=== PATIENT | male | born 1940 | race Caucasian/White ===

== ENCOUNTER 2017-01-21 19:52 | Outpatient (CLI) | payer MEDICARE ==
[~2017-01-21] VITALS: Ht 271.8 cm; Wt 90.9 kg
[~2017-01-21 19:52] MED LIST: ACETAMINOPHEN500 M1 PO; ACIDOPHILUS LAC1 CAP PO; ATIVAN2 MG/ML IV; BENADRYL50 MG PO; BENICAR20 MG PO; BENICAR40 MG PO; BYSTOLIC10 MG PO; CALMOSEPTINE OI71 GM TOPICAL; COLACE100 MG PO; CORDARONE200 MG; COUMADIN4 MG PO; COUMADIN5 MG PO; COUMADIN6 MG PO; DEPAKOTE250 MG PO; FLAGYL500 MG PO; GEODON20 MG PO; GEODON40 MG PO; K-DUR20 MEQ PO; KLONOPIN0.5 MG PO; KLOR-CON M2020 MEQ; LASIX40 MG; LASIX40 MG PO; LOSARTAN POTASS25 MG PO; LOVENOX150 MG/ML SC; MACROBID100 MG PO; MELATONIN 3 MG1 TAB PO; MULTIPLE VITAMI1 TA1 PO; NORVASC2.5 MG PO; NORVASC5 MG PO; PROTONIX40 MG PO; PYRIDOXINE HCL100 MG PO; REMERON15 MG PO; ROCEPHIN 1 GM/D51 G1 IM; SALINE FLUSH10 ML IV; VOLTAREN100 GM TOPICAL; ZOCOR20 MG PO
[2017-01-21 20:29] LABS: EOSINOPHILS 4.2 % (0-7); HEMATOCRIT 24.4 % (42.0-54.0); HEMOGLOBIN 7.8 g/dL (13.5-17.5); IMMATURE GRANULOCYTES 0.5 % (0-5); LYMPHOCYTES 38.5 % (15-50); MCH 33.8 pg (26.0-34.0); MCV 105.6 fL (80.0-100.0); MONOCYTES 9.4 % (2-11); NEUTROPHILS 46.4 % (40-80); PLATELET COUNT 262 10x3/uL (130-400); RBC 2.31 10x6/uL (4.20-6.10); RDW 16.2 % (11.5-14.5); WBC 4.1 10x3/uL (4.8-10.8)
[2017-01-21 20:47] LABS: ALBUMIN 2.3 g/dL (3.4-5.0); ALKALINE PHOSPHATASE 68 U/L (46-116); ALT (SGPT) 13 U/L (10-68); CALC OSMOLALITY 298 mosm/kg (275-300); CALCIUM 7.6 mg/dL (8.5-10.1); CARBON DIOXIDE 30.4 mmol/L (21.0-32.0); CHLORIDE - SERUM 112 mmol/L (98-107); GLUCOSE 119 mg/dL (74-106); PROTEIN - SERUM 5.9 g/dL (6.4-8.2); SODIUM 148 mmol/L (136-145); UREA NITROGEN 23 mg/dL (7-18); eGFR NON AFRICAN AMERICAN 77 mL/min (90-120)
[2017-01-21] MEDS ORDERED: ELIQUIS5 MG (22:57)
[2017-01-21] MEDS ORDERED: K-DUR20 MEQ (22:58)
--- NOTE | 2017-01-21 23:00 | NUR ---
PT RECEIVED FROM ER. REPORT RECEIVED FROM MORGAN TRISTAN. PT NOTED TO BE FROM [facility], [facility]. PT IS ALERT AND ORIENTED TO PERSON ONLY. PT NOTED TO HAVE 20G IV TO LEFT AC CURRENTLY SALINE LOCKED. DENIES PAIN OR NEEDS AT THIS TIME. PLEASANT MOOD NOTED.
[2017-01-21] MEDS ORDERED: NUEDEXTA 20-101 EACH (23:02)
--- NOTE | 2017-01-21 23:45 | NUR ---
THIS COMPUTER TESTER CALLED PT POA (JULIANA PALACIO) ALONG WITH RN TO OBTAIN CONSENT FOR BLOOD TRANSFUSION.
[2017-01-22 01:47] VITALS: BP 144/79; Ht 271.8 cm; Wt 90.9 kg
--- NOTE | 2017-01-22 05:15 | NUR ---
UPON ENTERING PT'S ROOM, PT OBSERVED WITH IV CATHETER IN HAND TOUCHING THE TIP WITH BLOOD ON SHIRT, BEDDING, AND SMALL AMOUNT ON FLOOR. BLOOD BAG NOTED TO BE EMPTY. PT VERY AGITATED AND YELLING AT STAFF. NOT COOPERATIVE WITH CARE, YELLING AT STAFF WHILE STAFF ASSISTED IN CLEANING PT UP. NO ACTIVE BLEEDING NOTED TO LEFT AC. BLOOD BAG NOTED TO BE 4/5 COMPLETED 15 MINUTES PRIOR TO FINDING PT WITH IV CATHETER REMOVED. IV POLE REMOVED FROM PT'S ROOM DUE TO PT CONSISTENTLY REACHING OVER AND PULLING ON IT. ATTEMPTED TO REDIRECT PT, NO SUCCESS.
--- NOTE | 2017-01-22 07:00 | NUR ---
PATIENT IN BED WITH EYES CLOSED RESTING QUIETLY. NO COMPLAINTS OR SIGNS OF DISTRESS. CALL LIGHT WITHIN REACH.
--- NOTE | 2017-01-22 07:15 | NUR ---
REPORT RECEIVED FROM COUNTY HEALTH OFFICER NURSE. CALL LIGHT IN REACH.
[2017-01-22 07:54] VITALS: BP 161/78
--- NOTE | 2017-01-22 08:39 | NUR ---
ASSESSMENT COMPLETED. AM MEDS ADMINISTERED. BED ALARM TURNED ON. CALL LIGHT IN REACH. WILL CONTINUE WITH PLAN OF CARE.
[2017-01-22] MEDS ORDERED: ZOCOR20 MG PO (09:58)
--- NOTE | 2017-01-22 10:58 | NUR ---
DENIES NEEDS AT THIS TIME. CALL LIGHT IN REACH. BROTHER AT BEDSIDE.
--- NOTE | 2017-01-22 11:17 | NUR ---
01/22/2017 11:00 DCP: Discharge Planning Patient Name: BRIAN PALACIO Admission Status: ER Accout number: [id number] Admission Date: 01-21-2017 : 1940 Admission Diagnosis: Attending: DONOVAN Current LOS: 1 Anticipated DC Date: 01-22-2017 Planned Disposition: Nursing Facility [facility] Primary Insurance: MEDICARE A & B Discharge Planning Comments: Patient is a residential care resident at [facility]. He will return to a vermin exterminator care bed this afternoon. Facility van will transport patient at 1230. Nursing to call report to [phone]. Supply Chain Intern: Elisha Pedroza
[2017-01-22 11:33] VITALS: BP 138/76
--- NOTE | 2017-01-22 12:07 | NUR ---
REPORT CALLED TO SHER PIEDRA, AT [facility]. PATIENT REFUSES TO DEBBIE LUCIO D/T CONFUSION.
--- NOTE | 2017-01-22 13:30 | NUR ---
DC'D TO LONG TERM VEHICLE VIA WC WITH LONG TERM STAFF.
== END 2017-01-22 13:30 | disposition home or self-care (01) ==
LOC: OBSVTIME → D.OPS 19:52 → D.ER 19:52 → D.MS 21:23 → OBSVTIME 21:23 → D.MS 21:23 → D.ER 21:23 → D.OPS 01-22 13:30 → D.MS 01-22 13:30
PROVIDERS: Emergency Medicine
DX: D64.9 Anemia, unspecified (principal); I65.22 Occlusion and stenosis of left carotid artery; D63.8 Anemia in other chronic diseases classified elsewhere; D21.9 Benign neoplasm of connective and other soft tissue, unspecified; M19.90 Unspecified osteoarthritis, unspecified site; R53.81 Other malaise; N40.0 Benign prostatic hyperplasia without lower urinary tract symptoms; I69.319 Unspecified symptoms and signs involving cognitive functions following cerebral infarction; I69.351 Hemiplegia and hemiparesis following cerebral infarction affecting right dominant side

== ENCOUNTER 2017-04-07 14:14 | Inpatient (IN) | payer MEDICARE ==
[~2017-04-07] VITALS: Ht 188 cm; Wt 112.1 kg
[~2017-04-07 14:14] MED LIST changes: +ELIQUIS5 MG; +K-DUR20 MEQ; +NUEDEXTA 20-101 EACH
[2017-04-07 14:43] LABS: EOSINOPHILS 8.4 % (0-7); HEMATOCRIT 24.8 % (42.0-54.0); HEMOGLOBIN 7.9 g/dL (13.5-17.5); LYMPHOCYTES 34.4 % (15-50); MCH 34.5 pg (26.0-34.0); MCHC 31.9 g/dL (31.0-37.0); MCV 108.3 fL (80.0-100.0); MEAN PLATELET VOLUME 9.8 fL (7.4-10.4); MONOCYTES 11.3 % (2-11); NEUTROPHILS 44.9 % (40-80); PLATELET COUNT 272 10x3/uL (130-400); RBC 2.29 10x6/uL (4.20-6.10); RDW 16.8 % (11.5-14.5); WBC 4.2 10x3/uL (4.8-10.8)
[2017-04-07 15:04] LABS: ALBUMIN 2.2 g/dL (3.4-5.0); ALKALINE PHOSPHATASE 66 U/L (46-116); ALT (SGPT) 13 U/L (10-68); BILIRUBIN - TOTAL 0.18 mg/dL (0.2-1.3); CALC OSMOLALITY 299 mosm/kg (275-300); CALCIUM 7.8 mg/dL (8.5-10.1); CARBON DIOXIDE 31.5 mmol/L (21.0-32.0); CHLORIDE - SERUM 110 mmol/L (98-107); GLUCOSE 104 mg/dL (74-106); PROTEIN - SERUM 6.3 g/dL (6.4-8.2); SODIUM 148 mmol/L (136-145); UREA NITROGEN 29 mg/dL (7-18); eGFR NON AFRICAN AMERICAN 77 mL/min (90-120)
[2017-04-07 15:47] LABS: APPEARANCE CLEAR (CLEAR); BILIRUBIN NEGATIVE (NEGATIVE); COLOR YELLOW (YELLOW); GLUCOSE NEGATIVE (NEGATIVE); KETONE NEGATIVE (NEGATIVE); LEUKOCYTE ESTERASE TRACE (NEGATIVE); NITRITE POSITIVE (NEGATIVE); PROTEIN NEGATIVE (NEGATIVE); UROBILINOGEN NORMAL (NORMAL)
[2017-04-07 15:49] LABS: BACTERIA MANY /hpf (NONE SEEN); RED CELLS - URINE 0-5 /hpf (0-5)
--- NOTE | 2017-04-07 19:35 | NUR ---
RECEIVED FROM ER VIA STRETCER. TRANSFER TO BED. ORIENTED X 2. STATES HIS NAME, AND THAT HE IS IN THE HOSPITAL, BUT NOT THE NAME. IV IS IN THE R AC WITH LEVAQUIN INFUSING, STARTED IN ER. GOT HIM SOME ICE WATER AND A URINAL. ORIENTED TO CALL LIGHT.
--- NOTE | 2017-04-07 19:50 | NUR ---
PLACED ON TELEMETRY PER ORDER, SHOWS 56 SB WITH FIRST DEGREE BLOCK ON MONITOR. REQUESTED ANOTHER PILLOW.
[2017-04-07 21:40] VITALS: BP 140/59
--- NOTE | 2017-04-07 22:00 | NUR ---
HAS HOLLERED OUT A FEW TIMES. STATED HE WAS CALLING FOR HIS . REORIENTED HIM TO BEING IN THE HOSPITAL.
[2017-04-08 01:21] VITALS: BP 128/57
[2017-04-08] MEDS ORDERED: LIPITOR10 MG PO (01:48)
[2017-04-08] MEDS ORDERED: DEPAKOTE125 MG PO (01:51)
[2017-04-08] MEDS ORDERED: MULTIPLE VITAMI1 TA1 PO (01:51)
[2017-04-08] MEDS ORDERED: DULCOLAX5 MG PO (01:52)
[2017-04-08] MEDS ORDERED: PEPCID20 MG PO (01:54)
[2017-04-08 02:03] VITALS: BP 144/60; BMI 31.1
--- NOTE | 2017-04-08 03:57 | NUR ---
MANAGER RELOCATION PRESENT IN ROOM TAKING VITAL SIGNS. CHANGED FOR INCONTINENCE OF URINE.
[2017-04-08 04:47] VITALS: BP 124/55
--- NOTE | 2017-04-08 07:00 | NUR ---
PT WAS RECEIVED AT THE BEGINNING OF THIS SHIFT SLUMPED OVER TO HIS RIGHT SIDE IN BED UP AGAINST THE UPPER SIDE RAIL. PT. WAS STRAIGHTENED UP IN BED. HE IS INCONTINENT OF URINE. PRN HESHAM-CARE GIVEN FOR INCONTINENT EPISODE. RT. AC IV WITH NS INFUSING VIA PUMP AT 50ML'S/HR. TELEMETRY ON. WILL BE MONITORING PT AND ASSISTING PRN WITH ADL'S. CALL LIGHT IS IN REACH.
--- NOTE | 2017-04-08 08:30 | NUR ---
SCD'S ON BILATERAL LE
[2017-04-08 08:40] VITALS: BP 127/61
[2017-04-08 10:29] VITALS: Ht 188 cm; Wt 112.1 kg
[2017-04-08 11:40] LABS: % SATURATION 58 % (15-55); IRON 80 ug/dl (35-150); TOTAL IRON BIND CAPACITY 137 ug/dl (260-445); UNSAT IRON BIND CAPACITY 57 ug/dl (150-375)
--- NOTE | 2017-04-08 12:40 | NUR ---
PATIENT IS A [facility] CARE PATIENT AT [facility]. PATIENT IS NOT ABLE TO ANSWER QUESTIONS. I CALLED AND SPOKE WITH PATIENT'S BROTHER, ESTRELLA, AND HIS , CLIFF. THEY STATED THAT THE PATIENT WILL RETURN TO [facility] AT DISCHARGE. I CALLED GRIFFIN VILLEGAS AND SHE CONFIRMED WITH LANG AT [facility] THAT PATIENT WILL RETURN TO LTC BED THERE AT DISCHARGE. NO DISCHARGE NEEDS IDENTIFIED AT THIS TIME.
[2017-04-08 13:18] LABS: BASOPHILS 0.9 % (0-2); EOSINOPHILS 10.4 % (0-7); HEMATOCRIT 25.5 % (42.0-54.0); HEMOGLOBIN 7.8 g/dL (13.5-17.5); LYMPHOCYTES 33.5 % (15-50); MCH 33.6 pg (26.0-34.0); MCHC 30.6 g/dL (31.0-37.0); MCV 109.9 fL (80.0-100.0); MEAN PLATELET VOLUME 10.2 fL (7.4-10.4); MONOCYTES 10.7 % (2-11); NEUTROPHILS 44.5 % (40-80); PLATELET COUNT 278 10x3/uL (130-400); RBC 2.32 10x6/uL (4.20-6.10); RDW 16.7 % (11.5-14.5); WBC 3.3 10x3/uL (4.8-10.8)
--- NOTE | 2017-04-08 15:34 | NUR ---
INITIATED PTS FIRST UNIT OF PRBCS. INFUSING VIA R.AC PIV @75ML/HR PRE VITALS STABLE AND BEING MONITERED Q15MIN PER PROTOCOL. EXPLAINED REASONING AND PROCEDURE WITH PT. PT VERBALIZED UNDERSTANDING BUT SEEMS SLIGHTLY CONFUSED. WILL STAY IN ROOM FIRST 15 MINS OF TRANSFUSION TO MONITER FOR ANY REACTION. NO FURTHER NEEDS. WILL CTM.
--- NOTE | 2017-04-08 15:45 | NUR ---
NO REACTION NOTED AFTER FIRST 15MINS OF TRANSFUSION. VSS AND STILL BEING RECORDED AND MONITERED Q15. PT RESTING QUIETLY WITH EYES CLOSED. WILL NOW BUMP BLOOD UP TO 125ML/HR AND CPOC.
--- NOTE | 2017-04-08 17:29 | NUR ---
PT HAS BEEN TOLERATING HIS FIRST UNIT OF PRBC'S THIS AFTERNOON WHILE SLEEPING. NO SIGNS OF ANY ADVERSE REACTIONS TO NOTE. PT WILL BE NPO AFTER MIDNIGHT TONIGHT FOR AN EGD PROCEDURE TOMORROW AROUND 2PM WITH DR. ABBOTT. EKG NEEDS TO BE ON THE CHART.
--- NOTE | 2017-04-08 19:00 | NUR ---
2ND UNIT PRBC'S STARTED AT THIS TIME. VS MONITORED PER PROTOCOL. PT TOLERATING WELL. WILL MONITOR FREQ FOR S/S ADVERSE REACTIONS.
[2017-04-08 20:24] VITALS: BP 163/86
--- NOTE | 2017-04-08 22:00 | NUR ---
2ND UNIT PRBC'S TRANSFUSED - PT CRISTOFER WELL. NO ADVERSE REACTIONS NOTED. VSS, AFEBRILE. RESP EVEN AND UNLABORED. WILL MONITOR.
[2017-04-09 01:28] VITALS: BP 153/75
[2017-04-09 04:34] VITALS: BP 163/83
--- NOTE | 2017-04-09 06:47 | NUR ---
PT RESTS WELL THIS SHIFT WITHOUT C/O OR DISTRESS NOTED. CALL LIGHT WITHIN REACH. WILL MONITOR.
[2017-04-09 07:18] LABS: BASOPHILS 0.6 % (0-2); HEMATOCRIT 28.9 % (42.0-54.0); HEMOGLOBIN 9.1 g/dL (13.5-17.5); IMMATURE GRANULOCYTES 0.3 % (0-5); MCH 32.7 pg (26.0-34.0); MCHC 31.5 g/dL (31.0-37.0); MEAN PLATELET VOLUME 9.8 fL (7.4-10.4); MONOCYTES 12.6 % (2-11); NEUTROPHILS 43.5 % (40-80); PLATELET COUNT 229 10x3/uL (130-400); RBC 2.78 10x6/uL (4.20-6.10); RDW 18.7 % (11.5-14.5); WBC 3.6 10x3/uL (4.8-10.8)
--- NOTE | 2017-04-09 07:23 | NUR ---
PT SITTING UP IN BED DENIES ANY NEEDS WILL CONT TO MONITOR
[2017-04-09 07:28] LABS: CALC OSMOLALITY 294 mosm/kg (275-300); CALCIUM 7.7 mg/dL (8.5-10.1); CARBON DIOXIDE 33.9 mmol/L (21.0-32.0); CHLORIDE - SERUM 110 mmol/L (98-107); GLUCOSE 81 mg/dL (74-106); POTASSIUM - SERUM 3.7 mmol/L (3.5-5.1); SODIUM 147 mmol/L (136-145); UREA NITROGEN 24 mg/dL (7-18); eGFR NON AFRICAN AMERICAN 77 mL/min (90-120)
[2017-04-09 07:30] LABS: INR 1.12 (0.85-1.17); PROTIME 14.2 SECONDS (11.6-15.0)
[2017-04-09 08:21] LABS: FOLATE (FOLIC ACID) - SERUM 8.2 ng/mL (>3.0)
[2017-04-09 08:46] VITALS: BP 147/73
--- NOTE | 2017-04-09 08:53 | NUR ---
PT IS ONLY ORIENTED TO PERSON. PT IS UNABLE TO SIGN OWN CONSENTS. CALLED AND SPOKE WITH PT SISTER IN LAW JULIANA LOPEZ WHO IS IN CHARGE OF SIGNING CONSENTS FOR PT. GOT TELEPHONE CONSENT VERIFIED BY SOCORRO FLEMING RN. CONSENTS ARE ON THE CHART.
[2017-04-09 12:00] VITALS: BP 143/67
--- NOTE | 2017-04-09 12:40 | NUR ---
GI LAB CALLED TO PREOP PT AT 1300. NO ORDERS. CALLED GI LAB BACK AND THEY SAID TO NOT WORRY ABOUT IT. SPOKE WITH AARON.
--- NOTE | 2017-04-09 15:04 | NUR ---
PT IS IN GI LAB.
--- NOTE | 2017-04-09 15:25 | NUR ---
PT IS BACK FROM GI LAB. VS ARE WNL. PT IS AWAKE AND TALKING. BROTHER IS AT BEDSIDE. ORDERING PT LATE LUNCH TRAY. WILL CONT TO MONITOR
[2017-04-09 17:00] VITALS: BP 144/72
--- NOTE | 2017-04-09 19:33 | NUR ---
PT YELLING OUT FOR MAMA, KLONOPIN 1 TAB GIVEN FOR S/S AGITATION.
[2017-04-09 19:41] VITALS: BP 136/761
--- NOTE | 2017-04-09 20:46 | NUR ---
IV TO RIGHT AC LEAKING, REMOVED CATH, TIP INTACT. RESITED IV TO LEFT WRIST, 22 GAUGE, FIRST ATTEMPT. HALDOL 5 MG GIVEN FOR AGITATION, PT YELLING OUT " PAY COME HERE YOU BITCH, IM TIRED OF CALLING YOU, YOU BITCH" TOLD PT THAT HE NEEDS TO QUIT YELLING AND NOT TO BE CALLING ANY BODY CUSS WORDS. PT STATED THAT HE WOULNT YELL, HOWEVER SOON I RETURNED TO NURSES DESK HE STARTED YELLING AGAIN.
--- NOTE | 2017-04-09 23:40 | NUR ---
PT RESTING WELL WITHOUT C/O OR DISTRESS NOTED. NO CHANGES NOTED IN ASSESSMENT. CALL LIGHT WITHIN REACH. WILL CONT TO MONITOR.
--- NOTE | 2017-04-10 01:57 | NUR ---
RESTING WITH EYES CLOSED, RESPERATIONS EVEN, NO S/S DISTRESS NOTED.
--- NOTE | 2017-04-10 07:18 | NUR ---
PT SITTING UP IN BED DENIES ANY NEEDS WILL CONT TO MONITOR.
[2017-04-10 08:35] VITALS: BP 101/58
[2017-04-10 08:52] LABS: BASOPHILS 0.5 % (0-2); EOSINOPHILS 10.2 % (0-7); HEMATOCRIT 29.7 % (42.0-54.0); HEMOGLOBIN 9.4 g/dL (13.5-17.5); IMMATURE GRANULOCYTES 0.3 % (0-5); LYMPHOCYTES 31.9 % (15-50); MCH 33.1 pg (26.0-34.0); MCHC 31.6 g/dL (31.0-37.0); MCV 104.6 fL (80.0-100.0); MEAN PLATELET VOLUME 9.9 fL (7.4-10.4); MONOCYTES 10.2 % (2-11); NEUTROPHILS 46.9 % (40-80); PLATELET COUNT 227 10x3/uL (130-400); RBC 2.84 10x6/uL (4.20-6.10); RDW 17.8 % (11.5-14.5); WBC 3.9 10x3/uL (4.8-10.8)
[2017-04-10 09:02] LABS: CALC OSMOLALITY 293 mosm/kg (275-300); CALCIUM 8.1 mg/dL (8.5-10.1); CARBON DIOXIDE 32.6 mmol/L (21.0-32.0); CHLORIDE - SERUM 109 mmol/L (98-107); GLUCOSE 87 mg/dL (74-106); POTASSIUM - SERUM 3.6 mmol/L (3.5-5.1); SODIUM 146 mmol/L (136-145); UREA NITROGEN 25 mg/dL (7-18); eGFR NON AFRICAN AMERICAN 77 mL/min (90-120)
[2017-04-10 11:44] VITALS: BP 162/76
[2017-04-10] MEDS ORDERED: FLORAJEN3 CAPS460 MG PO (14:58)
[2017-04-10] MEDS ORDERED: PROTONIX20 MG PO (14:59)
[2017-04-10] MEDS ORDERED: LEVAQUIN500 MG PO (15:00)
--- NOTE | 2017-04-10 15:24 | NUR ---
Patient has orders for discharge back to [facility]. CN telephoned facility. They will accept back today. Primary nurse to call report to Maria Luz at [phone]. Patient will be discharged back to a senior living bed via ambulance.
--- NOTE | 2017-04-10 15:29 | NUR ---
TC TO CORTEZ BONNER AT [phone]. THE PERSON WHO ANSWERED STATES THIS IS THE WRONG NUMBER FOR THIS PERSON. THE PRIMARY NURSE WILL CALL HIS BROTHER, ARPAN PALACIO, AT [phone] TO ADVISE OF DISCHARGE.
--- NOTE | 2017-04-10 15:40 | NUR ---
CALLED REPORT TO EBONY NORMAN. STILL WAITING ON DC PAPERWORK, WILL CALL AMBULANCE ONCE DC PAPERWORK IS FINISHED.
[2017-04-10 16:00] VITALS: BP 141/71
--- NOTE | 2017-04-10 16:23 | NUR ---
DC PIV WITH CATH TIP INTACT. REMOVED TELE AND RETURNED TO QUALITY ASSURANCE ANALYST. STILL WAITING ON DC PAPERWORK AND WILL CALL [facility].
--- NOTE | 2017-04-10 16:53 | NUR ---
JOE PICKED UP PT AND TOOK HIM BACK TO [facility]. CALLED PT FAMILY AND NOTIFIED THEM OF PT BEING DC HOME
== END 2017-04-10 16:57 | DRG 812 ==
LOC: D.ER 14:14 → D.M2 16:11
PROVIDERS: Emergency Medicine; Internal Medicine Gastroenterology; ADMIT Family Medicine
PROC: 0DB68ZX Excision of Stomach, Via Natural or Artificial Opening Endoscopic, Diagnostic (ICD-10-PCS; principal; 2017-04-09 14:00)
DX: D62 Acute posthemorrhagic anemia (principal); N39.0 Urinary tract infection, site not specified; I10 Essential (primary) hypertension; D63.8 Anemia in other chronic diseases classified elsewhere; F48.2 Pseudobulbar affect; I65.22 Occlusion and stenosis of left carotid artery; I69.919 Unspecified symptoms and signs involving cognitive functions following unspecified cerebrovascular disease; K21.9 Gastro-esophageal reflux disease without esophagitis; F41.9 Anxiety disorder, unspecified; M19.90 Unspecified osteoarthritis, unspecified site; N40.0 Benign prostatic hyperplasia without lower urinary tract symptoms; E78.5 Hyperlipidemia, unspecified; K59.00 Constipation, unspecified; Z87.891 Personal history of nicotine dependence; K20.9 Esophagitis, unspecified; K25.9 Gastric ulcer, unspecified as acute or chronic, without hemorrhage or perforation

== ENCOUNTER 2017-05-07 00:11 | Emergency (ER) | payer MEDICARE ==
[2017-04-08 10:29] VITALS: BMI 31.9
[~2017-05-07 00:11] MED LIST changes: +DEPAKOTE125 MG PO; +DULCOLAX5 MG PO; +FLORAJEN3 CAPS460 MG PO; +LEVAQUIN500 MG PO; +LIPITOR10 MG PO; +PEPCID20 MG PO; +PROTONIX20 MG PO
[2017-05-07 01:51] LABS: EOSINOPHILS 10.2 % (0-7); HEMOGLOBIN 8.1 g/dL (13.5-17.5); LYMPHOCYTES 25.6 % (15-50); MCH 32.4 pg (26.0-34.0); MCHC 31.2 g/dL (31.0-37.0); MEAN PLATELET VOLUME 9.7 fL (7.4-10.4); MONOCYTES 11.4 % (2-11); NEUTROPHILS 51.8 % (40-80); RDW 15.2 % (11.5-14.5); WBC 3.9 10x3/uL (4.8-10.8)
[2017-05-07 01:56] LABS: PLATELET COUNT 234 10x3/uL (130-400)
[2017-05-07 02:08] LABS: ALBUMIN 2.3 g/dL (3.4-5.0); ALKALINE PHOSPHATASE 112 U/L (46-116); ALT (SGPT) 19 U/L (10-68); BILIRUBIN - TOTAL 0.29 mg/dL (0.2-1.3); CALC OSMOLALITY 299 mosm/kg (275-300); CALCIUM 8.1 mg/dL (8.5-10.1); CARBON DIOXIDE 32.4 mmol/L (21.0-32.0); CHLORIDE - SERUM 111 mmol/L (98-107); CREATININE - SERUM 1.3 mg/dL (0.6-1.3); GLUCOSE 115 mg/dL (74-106); PROTEIN - SERUM 6.5 g/dL (6.4-8.2); SODIUM 148 mmol/L (136-145); UREA NITROGEN 27 mg/dL (7-18); eGFR NON AFRICAN AMERICAN 57 mL/min (90-120)
[2017-05-07 02:18] LABS: CKMB 0.5 U/L (0.0-3.6); CREATINE KINASE 73 UL (21-232)
[2017-05-07 02:21] LABS: TROPONIN-I < 0.017 ng/mL (0.000-0.060)
== END 2017-05-07 04:07 | disposition home or self-care (01) ==
LOC: D.ER 00:11
PROVIDERS: Family Medicine
DX: S00.11XA Contusion of right eyelid and periocular area, initial encounter (principal); W19.XXXA Unspecified fall, initial encounter; Y93.89 Activity, other specified; Y92.129 Unspecified place in nursing home as the place of occurrence of the external cause; D64.9 Anemia, unspecified; R00.1 Bradycardia, unspecified; I44.0 Atrioventricular block, first degree; I45.10 Unspecified right bundle-branch block; I44.60 Unspecified fascicular block

== ENCOUNTER 2017-05-21 22:45 | Observation (INO) | payer MEDICARE ==
[2017-04-08 10:29] VITALS: BMI 31.9
[2017-05-21 23:46] LABS: EOSINOPHILS 17.3 % (0-7); HEMATOCRIT 22.5 % (42.0-54.0); LYMPHOCYTES 36.9 % (15-50); MCH 32.4 pg (26.0-34.0); MCHC 31.1 g/dL (31.0-37.0); MCV 104.2 fL (80.0-100.0); MEAN PLATELET VOLUME 9.4 fL (7.4-10.4); MONOCYTES 9.8 % (2-11); PLATELET COUNT 232 10x3/uL (130-400); RBC 2.16 10x6/uL (4.20-6.10); WBC 3.1 10x3/uL (4.8-10.8)
[2017-05-22] VITALS (27 sets, daily range): BP systolic 10–156; BP diastolic 58–78
[2017-05-22 00:05] LABS: ALBUMIN 2.2 g/dL (3.4-5.0); ALKALINE PHOSPHATASE 91 U/L (46-116); ALT (SGPT) 17 U/L (10-68); CALC OSMOLALITY 293 mosm/kg (275-300); CALCIUM 7.8 mg/dL (8.5-10.1); CARBON DIOXIDE 33.6 mmol/L (21.0-32.0); CHLORIDE - SERUM 108 mmol/L (98-107); CREATININE - SERUM 0.9 mg/dL (0.6-1.3); GLUCOSE 87 mg/dL (74-106); POTASSIUM - SERUM 3.8 mmol/L (3.5-5.1); PROTEIN - SERUM 6.2 g/dL (6.4-8.2); SODIUM 146 mmol/L (136-145); UREA NITROGEN 24 mg/dL (7-18); eGFR NON AFRICAN AMERICAN 87 mL/min (90-120)
--- NOTE | 2017-05-22 05:20 | NUR ---
BEGAN INFUSING FIRST UNIT OF PRBC'S
--- NOTE | 2017-05-22 08:44 | NUR ---
AWAKE AND ALERT. ORIENTED TO SELF ONLY THIS AM. LUNGS ARE CLEAR BILATERALLY, NO COUGH NOTED. SKIN IS INTACT WITHOUT REDNESS. IV TO RIGHT HAND PATENT WITH FIRST UNIT PRBC COMPLETED AT THIS TIME. SITTING UP IN BED EATING BREAKFAST. NO C/O AT THIS TIME. DENIES NEEDS.
--- NOTE | 2017-05-22 09:40 | NUR ---
SECOND UNIT PRBC UP AT THIS TIME. VSS. PATIENT PULLED IV OUT AND WAS RESITED AFTER 3 ATTEMPS WITH 20 G.
--- NOTE | 2017-05-22 10:00 | NUR ---
TRANSFUSION CONTINUES WITHOUT COMPLICATIONS. VSS. BROTHER AT BEDSIDE. BROUGHT FOOD IN FOR PATIENT.
--- NOTE | 2017-05-22 11:00 | NUR ---
BROTHER BROUGHT IN FOOD FROM OUTSIDE AND PATIENT ATE ALMOST ALL. TRANSFUSION CONTINUES WITHOUT COMPLICATIONS.
--- NOTE | 2017-05-22 12:30 | NUR ---
REFUSED LUNCH TRAY AT THIS TIME. TRANSFUSION CONTINUES.
--- NOTE | 2017-05-22 13:30 | NUR ---
TRANSFUSION COMPLETED WITHOUT COMPLICATIONS. VSS. DENIES NEEDS. INCONTINENT OF URINE. SKIN CARE PER STAFF. REPOSTIONED IN BED FOR COMFORT.
--- NOTE | 2017-05-22 13:45 | NUR ---
THIRD UNIT PRBC UP AT THIS TIME. GIVEN 20MG LASIX SLOW IVP PER ORDERS. VSS.
--- NOTE | 2017-05-22 14:00 | NUR ---
TRANSFUSION CONTINUES WITHOUT COMPLICATIONS. VSS.
--- NOTE | 2017-05-22 15:00 | NUR ---
NO CHANGES NOTED. TRANSFUSION CONTINUES.
--- NOTE | 2017-05-22 16:00 | NUR ---
TRANSFUSION CONTINUES WITHOUT DIFFICULTY. VSS. DENIES NEEDS.
--- NOTE | 2017-05-22 17:00 | NUR ---
TRANSFUSION COMPLETED WITHOUT COMPLICATIONS. VSS. SUPPER SERVED IN ROOM. FEEDS SELF WITH SOME SET UP ASSIST. NO CHANGES NOTED. DENIES NEEDS.
--- NOTE | 2017-05-22 19:15 | NUR ---
ALERT/AWAKE CONFUSED TO TIME, SITUATION, LOCATION. KEEPS HOLLERING FOR HIS "GARRY". UNSUCCESSFUL AT ORIENTING TO BEING IN HOSPITAL. HIS YELLING WAS HEARD BY HIS DAUGHTER VISITING ANOTHER PATIENT. SHE IS TRYING TO REORIENTING HIM ALSO. ASSESSMENTS COMPLETED. WILL CONTINUE TO MONITOR CLOSELY.
--- NOTE | 2017-05-22 21:25 | NUR ---
SPIT OUT HIS SCHED PO MEDS. READMIN CRUSHED WITH APPLESAUCE. ADMIN KLONIPIN 0.5MG PO FOR HIS CONSTANT HOLLERING.
--- NOTE | 2017-05-23 02:30 | NUR ---
RESTING QUIETLY WITH EYES CLOSED. RR 18 EVEN U/L. NO S/S OF DISTRESS OR DISCOMFORT. DOOR LEFT OPEN TO MONITOR CLOSELY. BED ALARM IS ON.
[2017-05-23 04:00] VITALS: BP 163/70
[2017-05-23 06:05] LABS: BASOPHILS 0.9 % (0-2); EOSINOPHILS 16.7 % (0-7); IMMATURE GRANULOCYTES 0.3 % (0-5); LYMPHOCYTES 35.3 % (15-50); MCH 32.2 pg (26.0-34.0); MCHC 33.2 g/dL (31.0-37.0); MEAN PLATELET VOLUME 9.9 fL (7.4-10.4); MONOCYTES 11.1 % (2-11); NEUTROPHILS 35.7 % (40-80); PLATELET COUNT 220 10x3/uL (130-400); RDW 20.1 % (11.5-14.5); WBC 3.2 10x3/uL (4.8-10.8)
--- NOTE | 2017-05-23 06:26 | NUR ---
ADMIN SCHED MEDS WITH APPLESAUCE. CLOTH CUTTING INSPECTOR GAVE BATH, CHANGED GOWN AND BEDDING.
[2017-05-23 06:27] LABS: HEMATOCRIT 27.4 % (42.0-54.0); HEMOGLOBIN 9.1 g/dL (13.5-17.5); MCV 96.8 fL (80.0-100.0); RBC 2.83 10x6/uL (4.20-6.10)
[2017-05-23 06:54] LABS: CALC OSMOLALITY 292 mosm/kg (275-300); CALCIUM 7.7 mg/dL (8.5-10.1); CARBON DIOXIDE 34.6 mmol/L (21.0-32.0); CHLORIDE - SERUM 108 mmol/L (98-107); GLUCOSE 83 mg/dL (74-106); POTASSIUM - SERUM 3.3 mmol/L (3.5-5.1); SODIUM 145 mmol/L (136-145); UREA NITROGEN 27 mg/dL (7-18); eGFR NON AFRICAN AMERICAN 77 mL/min (90-120)
[2017-05-23 07:47] VITALS: BP 156/70
--- NOTE | 2017-05-23 08:14 | NUR ---
AROUSES TO VERBAL STIMULATION. ORIENTED TO SELF ONLY. ATTEMPTS TO REORIENT WITHOUT SUCCESS. LUNGS ARE CLEAR BILATERALLY, NO COUGH NOTED. SKIN IS INTACT WITHOUT REDNESS. SL TO RIGHT WRIST PATENT WTIHOUT REDNESS AT INSERTION SITE. DENIES NEEDS.
--- NOTE | 2017-05-23 10:13 | NUR ---
REFUSED AM MEDS AT THIS TIME. BECAME BELIGERANT AND SHOUTED LEAVE ME ALONE. WILL TRY AGAIN AFERWHILE.
--- NOTE | 2017-05-23 12:00 | NUR ---
REFUSED LUNCH TRAY OR ANY FOOD AT THIS TIME.
--- NOTE | 2017-05-23 12:30 | NUR ---
DR JOHNSON HERE. DISCHARGE ORDERS RECEIVED. REPORTED BP LOW. WILL GIVE BOLUS PRIOR TO DISCHARGE.
[2017-05-23 14:08] VITALS: BP 65/33
--- NOTE | 2017-05-23 14:28 | NUR ---
Patient admitted from [facility] for severe anemia. Has been transfused with 3 units of PRBCS. Plan is to return to facility. DR Ahuja called and spoke with the patient's brother, Erickson, this afternoon. CM advised Nichole, the charge nurse of discharge. Thuy, the primary nurse, will call report to Maria Luz chawla receiving nurse at [phone]. Patient will be transported via ambulance. PCS form signed by DR Ahuja. Discharge orders and chart copy provided.
[2017-05-23 15:08] VITALS: BP 164/75
--- NOTE | 2017-05-23 15:20 | NUR ---
BOLUS HAS COMPLETED. BP UP TO 164/75. REPORT CALLED TO RYAN ARMIJO LPN AT [facility]. ALL QUESTIONS ANSWERED. AMBULANCE NOTIFIED OF NEED TO TRANSPORT.
--- NOTE | 2017-05-23 18:00 | NUR ---
REFUSED OFFER OF FOOD. REFUSED OFFER OF ALTERNATIVE. INCONTINENT OF URINE. SKIN CARE AND LINENS CHANGED. NO CHANGES NOTED.
== END 2017-05-23 19:10 ==
LOC: D.ER 22:45 → D.MS 05-22 03:53 → OBSVTIME 05-22 03:53 → D.MS 05-22 03:53
PROVIDERS: Emergency Medicine; ADMIT Family Medicine
DX: D63.8 Anemia in other chronic diseases classified elsewhere (principal); I69.354 Hemiplegia and hemiparesis following cerebral infarction affecting left non-dominant side; I69.319 Unspecified symptoms and signs involving cognitive functions following cerebral infarction; N40.0 Benign prostatic hyperplasia without lower urinary tract symptoms; I10 Essential (primary) hypertension

== ENCOUNTER 2017-06-15 17:20 | Emergency (ER) | payer MEDICARE ==
[2017-04-08 10:29] VITALS: BMI 31.9
[2017-06-15 18:32] LABS: HEMATOCRIT 22.8 % (42.0-54.0); LYMPHOCYTES 31.9 % (15-50); MCH 31.3 pg (26.0-34.0); MCV 97.9 fL (80.0-100.0); MEAN PLATELET VOLUME 9.8 fL (7.4-10.4); MONOCYTES 10.5 % (2-11); NEUTROPHILS 54.6 % (40-80); PLATELET COUNT 235 10x3/uL (130-400); RBC 2.33 10x6/uL (4.20-6.10); RDW 17.2 % (11.5-14.5)
[2017-06-15 18:37] LABS: HEMOGLOBIN 7.3 g/dL (13.5-17.5)
[2017-06-15 18:50] LABS: APTT 28.5 SECONDS (22.8-39.4); INR 1.08 (0.85-1.17); PROTIME 13.8 SECONDS (11.6-15.0)
[2017-06-15 19:09] LABS: ALBUMIN 2.4 g/dL (3.4-5.0); ANION GAP 8.5 mmol/L (8-16); BILIRUBIN - TOTAL 0.28 mg/dL (0.2-1.3); CARBON DIOXIDE 32.3 mmol/L (21.0-32.0); CREATININE - SERUM 1.1 mg/dL (0.6-1.3); POTASSIUM - SERUM 3.8 mmol/L (3.5-5.1); PROTEIN - SERUM 6.2 g/dL (6.4-8.2)
== END 2017-06-16 02:20 | disposition home or self-care (01) ==
LOC: D.ER 17:20
PROVIDERS: Physician Assistant Medical
DX: D64.9 Anemia, unspecified (principal)

== ENCOUNTER 2017-06-30 03:19 | Inpatient (IN) | payer MEDICARE ==
[~2017-06-30] VITALS: Ht 188 cm; Wt 108.4 kg
[2017-06-30 04:36] LABS: HEMATOCRIT 23.1 % (42.0-54.0); INR 0.97 (0.85-1.17); MCH 30.2 pg (26.0-34.0); MCHC 30.7 g/dL (31.0-37.0); MCV 98.3 fL (80.0-100.0); MEAN PLATELET VOLUME 9.9 fL (7.4-10.4); PLATELET COUNT 232 10x3/uL (130-400); PROTIME 12.7 SECONDS (11.6-15.0); RBC 2.35 10x6/uL (4.20-6.10); RDW 17.9 % (11.5-14.5); WBC 2.7 10x3/uL (4.8-10.8)
[2017-06-30 04:37] LABS: HEMOGLOBIN 7.1 g/dL (13.5-17.5)
[2017-06-30 05:11] LABS: ALBUMIN 2.2 g/dL (3.4-5.0); BILIRUBIN - TOTAL 0.54 mg/dL (0.2-1.3); CALCIUM 7.5 mg/dL (8.5-10.1); CARBON DIOXIDE 33.1 mmol/L (21.0-32.0); CREATININE - SERUM 1.1 mg/dL (0.6-1.3); MAGNESIUM - SERUM 1.9 mg/dL (1.8-2.4); PROTEIN - SERUM 6.4 g/dL (6.4-8.2)
[2017-06-30 05:18] LABS: EOSINOPHILS 6 % (0-7); LYMPHOCYTES 26 % (15-50); MONOCYTES 3 % (2-11); NEUTROPHILS 63 % (40-80); PLATELET ESTIMATE NORMAL
--- NOTE | 2017-06-30 05:25 | NUR ---
REPORT RECEIVED FROM ER.
[2017-06-30 05:50] VITALS: BP 161/70; BMI 30.7
[2017-06-30 06:10] LABS: ANION GAP 7.5 mmol/L (8-16); POTASSIUM - SERUM 3.6 mmol/L (3.5-5.1)
--- NOTE | 2017-06-30 07:34 | NUR ---
AM ROUNDING- RECEIVED REPORT FROM CONTROL ELECTRICIAN NURSE JOSE LUIS. PT IS CURRENTLY LAYING IN BED ON BACK WITH EYES CLOSED RESTING. BED BOX ALARM ON AND ATTATCHED TO PT (PT IS CONFUSED AT TIMES PER REPORT). ON ROOM AIR. NO MONITOR. IV SEEN TO RIGHT AC THAT IS CURRENTLY SALINE LOCKED. NO NEED AT THIS CURRENT TIME. WILL TRANSFUSE PRBC WHEN READY AND CONTINUE WITH PLAN OF CARE. WILL CONTINUE OT MONITOR.
[2017-06-30 08:32] VITALS: BP 133/80
[2017-06-30 09:51] VITALS: Ht 188 cm; Wt 108.4 kg
--- NOTE | 2017-06-30 10:00 | NUR ---
FIRST UNIT OF BLOOD HUNG TO PTS 20G IV TO RIGHT AC. INFORMED PT TO ALERT STAFF IF HAVING ANY ABNORMAL S/S. PRE-VITALS TAKEN PER POLICY. FREQUENT VITALS BEGAN PER POLICY. WILL CONTINUE TO MONITOR.
[2017-06-30 12:34] VITALS: BP 158/71
--- NOTE | 2017-06-30 13:12 | NUR ---
FIRST UNIT OF BLOOD GIVEN WITH NO COMPLICATIONS. LASIX GIVEN ORDERED BETWEEN UNITS. WILL HANG SECOND UNIT OF BLOOD AND CONTINUE TO MONITOR.
--- NOTE | 2017-06-30 15:24 | NUR ---
MATHEW MOTA AND Kye CLEANED PT UP AND PLACED NEW PINK PADS UNDER PT (PT IS INCONTINENT OF URINE AND STOOL).
--- NOTE | 2017-06-30 18:01 | NUR ---
PT IS CURRELTY SITTING UP IN BED WITH EYES OPEN RESTING. PT IS NOT WANTING TO EAT DINNER. ENCOURAGED PT TO DRINK ENSURE. PT DOES NOT WANT IT AT THIS TIME. KAE ALARM IS ON. BED IS IN LOW POSITION, SIDE RAILS ARE UP X2, AND CALL LIGHT IS IN REACH. WILL CONTINUE TO MONITOR.
[2017-06-30 18:13] LABS: HEMATOCRIT 29.2 % (42.0-54.0); HEMOGLOBIN 9.3 g/dL (13.5-17.5)
[2017-06-30 19:00] VITALS: BP 158/70
--- NOTE | 2017-06-30 19:15 | NUR ---
RECEIVED REPORT, ASSUMED CARE OF PATIENT. ALERT/AWAKE ORIENTED X 3. STATES HIS, NAME, AND HOSP. IV IN RT AC INTACT SL. ORIENTED TO CL FOR ANY NEEDS.
--- NOTE | 2017-06-30 21:20 | NUR ---
ADMIN SCHED MEDS AND TYLENOL 500 MG PO FOR C/O BACK PAIN LEVEL 7 ON NUMBER SCALE, DESCRIBED ACHING. NO OTHER NEEDS VOICED.
--- NOTE | 2017-06-30 23:00 | NUR ---
CONTINUALLY HOLLERS OUT TO EVERYONE PASSING BY HIS DOOR, "HEY, COME IN HERE". DOES HAVE ANY ANSWER TO ANY NEEDS. ADMIN KLONOPIN 0.5 MG PO PER ORDER FOR AGITATION.
[2017-07-01 01:15] VITALS: BP 156/74
--- NOTE | 2017-07-01 01:56 | NUR ---
RESTING QUIETLY WITH EYES CLOSED. NO S/S OF DISTRESS OR DISCOMFORT. LEFT DOOR OPEN TO MONITOR CLOSELY.
[2017-07-01 05:17] LABS: BASOPHILS 0.8 % (0-2); EOSINOPHILS 11.2 % (0-7); HEMATOCRIT 27.8 % (42.0-54.0); HEMOGLOBIN 9.1 g/dL (13.5-17.5); IMMATURE GRANULOCYTES 0.3 % (0-5); LYMPHOCYTES 34.1 % (15-50); MCH 30.2 pg (26.0-34.0); MCHC 32.7 g/dL (31.0-37.0); MEAN PLATELET VOLUME 9.8 fL (7.4-10.4); MONOCYTES 11.7 % (2-11); NEUTROPHILS 41.9 % (40-80); PLATELET COUNT 221 10x3/uL (130-400)
[2017-07-01 05:18] LABS: MCV 92.4 fL (80.0-100.0); RBC 3.01 10x6/uL (4.20-6.10); WBC 3.8 10x3/uL (4.8-10.8)
--- NOTE | 2017-07-01 06:30 | NUR ---
PIPE TESTING TECHNICIAN GAVE BATH, CHANGED GOWN AND BEDDING, INCONTINENT OF URINE.
[2017-07-01 06:31] LABS: CALC OSMOLALITY 302 mosm/kg (275-300); CALCIUM 7.8 mg/dL (8.5-10.1); CHLORIDE - SERUM 112 mmol/L (98-107); CHOLESTEROL, TOTAL 139 mg/dL (0-200); CREATININE - SERUM 0.9 mg/dL (0.6-1.3); GLUCOSE 84 mg/dL (74-106); HDL CHOLESTEROL 28 mg/dL (32-96); LDL CHOLESTEROL 91 mg/dL (0-100); LDL-HDL RATIO 3.3 ratio (1.5-3.5); POTASSIUM - SERUM 3.5 mmol/L (3.5-5.1); SODIUM 151 mmol/L (136-145); T4 THYROXIN - FREE 1.48 ng/dL (0.76-1.46); THYROID STIMULATING HORMONE 5.87 uIU/mL (0.36-3.74); TRIGLYCERIDE 102 mg/dL (30-200); UREA NITROGEN 23 mg/dL (7-18); VALPROIC ACID (DEPAKOTE) 16.2 ug/mL (50.0-100.0); eGFR NON AFRICAN AMERICAN 87 mL/min (90-120)
--- NOTE | 2017-07-01 07:00 | NUR ---
SIGNED CONSENT FORM FOR EGD WITH TIVA TODAY. HANDWRITING NOT VERY GOOD, BUT STATES HE UNDERSTANDS PROCEDURE TO LOOK IN HIS STOMACH FOR BLEEDING ULCERS.
--- NOTE | 2017-07-01 07:30 | NUR ---
REPORT RECIVED. RR EVEN AND UNLABORED, STRIKER OUT AT BEDSIDE OBTAINING VS. PT DENIES NEEDS AT THIS TIME. BED IN LOWEST POSTION, CALL AMATO IN REACH, WILL CTM.
[2017-07-01 08:00] VITALS: BP 158/63
--- NOTE | 2017-07-01 09:00 | NUR ---
PRE-OP COMPLETED. PT RESTING QUIETLY, RR EVEN AND UNLABORED, TO BE TRANSFERRED FOR PROCEDURE.
--- NOTE | 2017-07-01 10:05 | NUR ---
PT RECIEVED TO ROOM FROM EGD. RR EVEN AND UNLABORED, VSS. PT DENIES NEEDS AT THIS TIME, ALERT AND ORIENTED TO PERSON, PLACE, AND SITUATION, DISORIENTED TO TIME. WILL CTM PT CONDITION AND CPOC.
[2017-07-01 12:00] VITALS: BP 165/75
--- NOTE | 2017-07-01 13:45 | NUR ---
CONTINUING TO PROMPT PT TO DRINK COLONOSCOPY PREP. PT STILL BEING REISISTANT TO DRINKING PREP. WILL CTM.
[2017-07-01 16:00] VITALS: BP 143/69
--- NOTE | 2017-07-01 16:20 | NUR ---
CONTINUING TO PROMPT PT TO DRINK PREP, PT REFUSED WHEN I OFFERED IT TO HIM. WILL CONTINUE TO TRY TO GET PT TO DRINK PREP.
--- NOTE | 2017-07-01 17:03 | NUR ---
WENT INTO PTS ROOM TO GIVE PT BED BATH AND OBTAIN CONSENT FOR COLONOSCOPY. EXPLAINED TO PT THAT WE WERE GOING TO COMPLETE A BATH WITH HIM. HE SAID "NO YOU ARE NOT AND TO JUST LEAVE HIM ALONE!" TRIED MUTLIPLE TIMES TO PROMPT PT TO TAKE A BED BATH AND HE CONTINUED TO REFUSE. PT ALSO REFUSED TO SIGN CONSENTS FOR COLONOSCOPY, WILL ASK HITCH TECHNICIAN TO TRY AND OBTAIN CONSENTS.
--- NOTE | 2017-07-01 17:07 | NUR ---
PT CONTINUES TO REFUSE TO DRINK COLON PREP, WILL CTM.
--- NOTE | 2017-07-01 17:59 | NUR ---
PT AGITATED. CNAS AT BEDSIDE GIVING PT BATH, PT BEING VERY COMBATIVE AND ATTEMPTING TO HIT CNAS. YELLING AND SAYING "NOT NOW." PT IS SOAKED IN URINE. PT NEEDS TO BE CLEANED UP BEFORE SHIFT CHANGE. WILL GIVE REPORT ON PT CONDITION FOR THE DAY.
--- NOTE | 2017-07-01 18:24 | NUR ---
Patient Name: BRIAN PALACIO Admission Status: ER Accout number: [id number] Admission Date: 07-01-2017 : 1940 Admission Diagnosis: Attending: FRANCE JOHNSON Current LOS: 1 Anticipated DC Date: Planned Disposition: Nursing Facility [facility] Primary Insurance: MEDICARE A & B PLANNED EXTERNAL PROVIDER: [place], LONG TERM CARE MEDICAID BED Discharge Planning Comments: * Is the patient Alert and Oriented? Yes 0 * How many steps to enter\exit or inside your home? NONE 0 * PCP [facility] 0 * Pharmacy [facility] 0 * [facility] Facility Name [facility] 0 * ADLs Partial Dependent 0 * Partial ADLs (Assistance needed) Ambulation Bathing Dressing Medication Management Toileting Transfers 0 * Equipment Other 0 * Other Equipment ALL EQUIPMENT PROVIDED BY FACILITY 0 * List name and contact numbers for known caregivers / representatives who currently or will assist patient after discharge: DAVID HAKEEM , , 0 * Community resources currently utilized None 0 * Please name any agencies selected above. NONE 0 * Additional services required to return to the preadmission environment? No 0 * Can the patient safely return to the preadmission environment? Yes 0 * Has this patient been hospitalized within the prior 30 days at any hospital? No 0 CM MET WITH PT IN ROOM TO DISCUSS DISCHARGE PLANNING AND NEEDS. [facility] CM ASKED IF HE IS BEING TREATED WELL THERE, PT REPORTS IT IS BETTER THAN THE OTHER ONE. PT REPORTS PLAN TO RETURN FOR [facility]HAB TO [facility]. PT REPORTS HIS BROTHER DAVID CAN BE CALLED IF CM NEEDS MORE INFORMATION. FOR DISCHARGE BACK TO [facility], NOTIFY DAVID BROTHER PALAC[place], [place] [phone]. NURSE REPORT TO BE CALLED TO [facility] AT [phone], FAX DISCHARGE INFORMATION TO [facility] AT [phone]. TRANSPORTATION TO BE ARRANGED DEPENDING ON PT'S FUNCTIONAL STATUS AT TIME OF DISCHARGE. Dental Hygiene Teacher: Lester Betancur
[2017-07-01 19:00] VITALS: BP 143/93
--- NOTE | 2017-07-01 19:36 | NUR ---
SLIGHT DROWSY, STATED "NO" TO ANY NEEDS OR DISCOMFORTS. IV IN RT AC INTACT SL. REFUSED TO DRINK ANY OF THE GOLYTELY. WILL TRY AGAIN WHEN HE IS MORE AWAKE. PLACED CL ON BED IN REACH. LEFT DOOR OPEN TO MONITOR CLOSELY.
--- NOTE | 2017-07-01 22:30 | NUR ---
STILL SLIGHTLY DROWSY, BUT STERNLY REPLIED "NO" TO OFFER OF A DRINK OF THE GOLYTELY.
--- NOTE | 2017-07-02 01:37 | NUR ---
REFUSING A BATH AND VITAL SIGNS. WILL NOT DRINK ANY OF THE GOLYTELY GI PREP.
[2017-07-02 04:00] VITALS: BP 166/107
--- NOTE | 2017-07-02 04:59 | NUR ---
ASSISTED LEGAL LIBRARIAN WITH CLEANING FOR INCONTINENCE OF URINE. ALLOWED HER TO TAKE HIS VITAL SIGNS AND ON AIR ANNOUNCER TO DRAW HIS BLOOD.
[2017-07-02 05:35] LABS: BASOPHILS 0.5 % (0-2); EOSINOPHILS 9.1 % (0-7); HEMATOCRIT 30.4 % (42.0-54.0); HEMOGLOBIN 9.8 g/dL (13.5-17.5); IMMATURE GRANULOCYTES 0.3 % (0-5); LYMPHOCYTES 29.3 % (15-50); MCH 30.6 pg (26.0-34.0); MCHC 32.2 g/dL (31.0-37.0); MONOCYTES 8.5 % (2-11); NEUTROPHILS 52.3 % (40-80); PLATELET COUNT 236 10x3/uL (130-400); RDW 19.3 % (11.5-14.5); WBC 3.8 10x3/uL (4.8-10.8)
[2017-07-02 05:52] LABS: CALC OSMOLALITY 297 mosm/kg (275-300); CALCIUM 8.1 mg/dL (8.5-10.1); CARBON DIOXIDE 30.7 mmol/L (21.0-32.0); CHLORIDE - SERUM 112 mmol/L (98-107); CREATININE - SERUM 0.8 mg/dL (0.6-1.3); GLUCOSE 83 mg/dL (74-106); POTASSIUM - SERUM 3.7 mmol/L (3.5-5.1); SODIUM 149 mmol/L (136-145); UREA NITROGEN 22 mg/dL (7-18); eGFR NON AFRICAN AMERICAN > 90 mL/min (90-120)
--- NOTE | 2017-07-02 07:30 | NUR ---
REPORT RECIEVED. RR EVEN AND UNLABORED, PT RESTING QUIETLY. PT DID NOT DRINK COLONOSCOPY PREP. WILL CALL DR. HO ABOUT PT BEING NON COMPLIANT WITH PREP. WILL CTM.
[2017-07-02 08:00] VITALS: BP 171/75
[2017-07-02 12:00] VITALS: BP 169/80
--- NOTE | 2017-07-02 15:10 | NUR ---
COMPLETED ANOTHER ENEMA WITH PT. PT HIT ME ON THE ARM TWICE SAYING "NO, I DON'T WANT THAT!." EXPLAINED THE PROCEDURE MULTIPLE TIMES FOR THE PATIENT AND WHEN I BEGAN TO INSERT THE TUBE HE WOULD SCREAM AGAIN AFTER HE CONSENTED. PT FINALLY LET US COMPLETE THE ENEMA AFTER THE 3RD ATTEMPT. FLUID RETURNED WAS CLEAR TOWARD THE END OF ENEMA. WILL CTM PT.
--- NOTE | 2017-07-02 16:20 | NUR ---
Patient Name: BRIAN PALACIO Encounter No: [id number] : 1940 Primary Insurance: MEDICARE A & B Anticipated DC Date: Planned Disposition: Nursing Facility [facility] Cert External Planned Provider: [facility] MEDICAID BED DCP follow-up note: CM CALLED GRIFFIN, CLINICAL LIAISON FOR [facility], , WHO VERFIED PT IS IN MACHINE CAPTAIN CARE AT [facility] WILL ACCEPT BACK AT DISCHARGE. CM FAXED REFERRAL TO [facility] VIA GRIFFIN AT [phone]. FOR DISCHARGE BACK TO [facility], NOTIFY BROTHER [place], [place] [phone]. NURSE REPORT TO BE CALLED TO [facility] AT [phone], FAX DISCHARGE INFORMATION TO [facility] AT [phone]. TRANSPORTATION TO BE ARRANGED DEPENDING ON PT'S FUNCTIONAL STATUS AT TIME OF DISCHARGE. Manufacturing Technology Professor: Lester Betancur
--- NOTE | 2017-07-02 16:30 | NUR ---
PREOP COMPLETED, PT DENIES QUESTIONS REGARDING PROCEDURE. RR EVEN AND UNALBORED, TO BE TRANSFERED TO SURGERY.
--- NOTE | 2017-07-02 18:27 | NUR ---
PT STILL IN PROCEDURE. WILL GIVE REPORT ON PT CONDITION FOR THE DAY.
--- NOTE | 2017-07-02 22:07 | NUR ---
AWAKE,ALERT.NO COMPLAINTS VOICED. SL TO RIGHT RA PATENT. RESP UNLABOERED. CL IN REACH.
[2017-07-02 22:08] VITALS: BP 188/83
--- NOTE | 2017-07-03 00:13 | NUR ---
ASSESSMENT UNCHANGED. VSS, AFEBRILE. RESP EVEN UNLABORED. NO NEEDS VOICED. WILL CONT TO MONITOR.
--- NOTE | 2017-07-03 01:51 | NUR ---
AWAKE, DISORIENTED TO SURROUNDINGS. NO DISTRESS NOTED. CL IN REACH.
--- NOTE | 2017-07-03 05:07 | NUR ---
iNCONTINENT OF B/B.HESHAM CARE GIVEN.COMBATIVE WITH CARE. POSITIONED FOR COMFORT. CL IN REACH.
[2017-07-03 05:09] VITALS: BP 154/76
--- NOTE | 2017-07-03 07:26 | NUR ---
AM ROUNDING- RECIEVED REPORT FROM MERCHANDISE SUPPORT ASSOCIATE NURSE OLIVIA. PT IS CURRENTL LAYING IN BED ON BACK WITH EYES OPEN RESTING. I ASKED PT HOW HE WAS DOING THIS AM. PT REPLIES "IM GOOD HOW ARE YOU". PT APPEARS TO BE SLIGHTLY CONFUSED. KAE ALARM/BED BOX ALARM ON ON AND ATTATCHED TO PT. ON ROOM AIR. NO MONITOR. IV SEEN TO RIGHT AC THAT IS CURRENTLY SALINE LOCKED. NO NEED AT THIS CURRENT TIME. UNABLE TO OBTAIN URINE SAMPLE DUE TO PT BEING INCONTINENT OF URINE. WILL CONTINUE TO MONITOR AND CONTINUE WITH PLAN OF CARE.
[2017-07-03 07:51] LABS: BASOPHILS 0.5 % (0-2); EOSINOPHILS 9.3 % (0-7); HEMATOCRIT 29.1 % (42.0-54.0); HEMOGLOBIN 9.1 g/dL (13.5-17.5); IMMATURE GRANULOCYTES 0.3 % (0-5); LYMPHOCYTES 30.6 % (15-50); MCHC 31.3 g/dL (31.0-37.0); MEAN PLATELET VOLUME 10.2 fL (7.4-10.4); MONOCYTES 9.6 % (2-11); NEUTROPHILS 49.7 % (40-80); RBC 3.03 10x6/uL (4.20-6.10); RDW 18.6 % (11.5-14.5)
[2017-07-03 07:54] LABS: PLATELET COUNT 184 10x3/uL (130-400)
[2017-07-03 08:30] LABS: CALC OSMOLALITY 289 mosm/kg (275-300); CALCIUM 7.8 mg/dL (8.5-10.1); CARBON DIOXIDE 31.7 mmol/L (21.0-32.0); CHLORIDE - SERUM 108 mmol/L (98-107); CREATININE - SERUM 0.9 mg/dL (0.6-1.3); GLUCOSE 80 mg/dL (74-106); POTASSIUM - SERUM 3.2 mmol/L (3.5-5.1); SODIUM 145 mmol/L (136-145); UREA NITROGEN 17 mg/dL (7-18); VALPROIC ACID (DEPAKOTE) 14.5 ug/mL (50.0-100.0); eGFR NON AFRICAN AMERICAN 87 mL/min (90-120)
[2017-07-03 08:39] VITALS: BP 155/64
[2017-07-03 12:20] VITALS: BP 156/64
--- NOTE | 2017-07-03 15:25 | NUR ---
PAGED DR. JOHNSON REGARDING PTS AM POTASSIUM LEVEL (3.2). WILL AWAIT CALLBACK.
--- NOTE | 2017-07-03 15:26 | NUR ---
RECIEVED CALLBACK FROM DR. JOHNSON WITH NEW ORDERS RECIEVED.
[2017-07-03 16:00] VITALS: BP 107/56
--- NOTE | 2017-07-03 17:49 | NUR ---
PT IS CURRENTLY SITTING UP IN BED WITH EYES OPEN RESTING. PT STATES HE DOES NOT WANT TO EAT DINNER. [facility] ALARM IS ON. BED IS IN LOW POSITION, SIDE RAILS ARE UP X2, AND CALL LIGHT IS IN REACH.
[2017-07-03 19:00] VITALS: BP 140/77
--- NOTE | 2017-07-03 19:20 | NUR ---
PATIENT RESTING QUIETLY ON HIS RIGHT SIDE. EYES ARE CLOSED. RESPIRATIONS ARE EVEN AND UNLABORED. CALL LIGHT IS IN PATIENT'S REACH. WILL MONITOR PATIENT.
--- NOTE | 2017-07-04 03:40 | NUR ---
PATIENT RESTING WITH HIS EYES CLOSED. NO S/S OF DISTRESS NOTED. [facility] ALARM IN PLACE AND ON FOR PATIENT'S SAFETY. CALL LIGHT IN PATIENT'S REACH. WILL MONITOR PATIENT.
[2017-07-04 05:59] LABS: BASOPHILS 0.3 % (0-2); EOSINOPHILS 9.8 % (0-7); HEMATOCRIT 26.6 % (42.0-54.0); HEMOGLOBIN 8.5 g/dL (13.5-17.5); IMMATURE GRANULOCYTES 0.3 % (0-5); LYMPHOCYTES 33.2 % (15-50); MCH 30.1 pg (26.0-34.0); MCV 94.3 fL (80.0-100.0); MEAN PLATELET VOLUME 9.8 fL (7.4-10.4); NEUTROPHILS 48.4 % (40-80); RBC 2.82 10x6/uL (4.20-6.10); RDW 18.2 % (11.5-14.5); WBC 3.3 10x3/uL (4.8-10.8)
[2017-07-04 06:07] LABS: PLATELET COUNT 240 10x3/uL (130-400)
[2017-07-04 06:10] LABS: ALBUMIN 2.2 g/dL (3.4-5.0); ANION GAP 8.3 mmol/L (8-16); BILIRUBIN - TOTAL 0.43 mg/dL (0.2-1.3); CALCIUM 7.6 mg/dL (8.5-10.1); CARBON DIOXIDE 31.3 mmol/L (21.0-32.0); CREATININE - SERUM 1.1 mg/dL (0.6-1.3); POTASSIUM - SERUM 3.6 mmol/L (3.5-5.1); PROTEIN - SERUM 6.2 g/dL (6.4-8.2)
[2017-07-04 08:26] VITALS: BP 158/72
--- NOTE | 2017-07-04 09:19 | NUR ---
Patient resting well in bed, refused to eat any breakfast but did take his AM pills without difficulty. Call light is within reach.
[2017-07-04 11:58] VITALS: BP 153/68
--- NOTE | 2017-07-04 13:09 | NUR ---
RESTING ON RIGHT SIDE WITH EYES CLOSED. RESP ARE EVEN AND NON LABORED. WILL FOLLOW.
--- NOTE | 2017-07-04 13:29 | NUR ---
Patient resting well in bed with call light within reach.
[2017-07-04 15:56] VITALS: BP 157/79
--- NOTE | 2017-07-04 16:20 | NUR ---
Patient awake, ate 5 bites of chicken noodle soup and 3 sips of water.
--- NOTE | 2017-07-04 17:09 | NUR ---
Patient sitting up in bed, 4 bites of hamburger, 3 sips of iced tea and 3 bites of jello. Bedding and gown changed due to incontinence of urine. Call light in reach.
--- NOTE | 2017-07-04 17:36 | NUR ---
Order for UA to be collected, unable to collect urine due to patient being incontinent and refusing intervention to collect a speciman.
--- NOTE | 2017-07-04 19:34 | NUR ---
RESTING WITH EYES CLOSED. AROUSES TO VERBAL STIMULI. NO NEEDS OR DISCOMFORTS VOICED. DOES NOT HAVE AN IV. KAE BED ALARM IS ON. DOOR LEFT OPEN TO MONITOR CLOSELY.
--- NOTE | 2017-07-04 20:51 | NUR ---
REFUSED TO TAKE HIS MEDICATIONS. CLOSING HIS MOUTH, SHAKING HIS HEAD "NO" STATING "I DON'T WANT IT".
--- NOTE | 2017-07-04 23:30 | NUR ---
ADMIN ATIVAN 2 MG IM IN RT DELTOID FOR AGITATION. TRYS TO HIT US WHEN NEEDING TO CLEAN HIM FOR INCONTINENCE. WILL NOT LET RN ORTHOPEDIC TAKE HIS VITAL SIGNS OR TAKE HIS SEIZURE MEDICATION DEPAKOTE.
[2017-07-05] VITALS (14 sets, daily range): BP systolic 141–180; BP diastolic 68–81
--- NOTE | 2017-07-05 00:28 | NUR ---
ASSISTED CT TECHNOLOGIST AND ANOTHER NURSE TO CLEAN FOR INCONTINENCE OF URINE. HE COOPERATED MORE AND WAS MORE RELAXED. STILL WILL NOT TAKE ANY SIPS OF WATER.
--- NOTE | 2017-07-05 04:21 | NUR ---
LAW OUT LOUDLY. STATED HIS BACK HURT. WOULD NOT LET US TURN HIM ON TO HIS SIDE. ACCEPTED TYLENOL AND A KLONOPIN WITH A SIP OF WATER. THE ONLY SIP OF WATER HE HAD ALL NIGHT. TRIED TO GIVE HIM SOME MILK, BUT SAID "NO".
[2017-07-05 04:48] LABS: BASOPHILS 0.6 % (0-2); EOSINOPHILS 10.8 % (0-7); HEMATOCRIT 27.4 % (42.0-54.0); HEMOGLOBIN 8.7 g/dL (13.5-17.5); IMMATURE GRANULOCYTES 0.3 % (0-5); LYMPHOCYTES 34.9 % (15-50); MCH 30.2 pg (26.0-34.0); MCHC 31.8 g/dL (31.0-37.0); MCV 95.1 fL (80.0-100.0); MEAN PLATELET VOLUME 9.7 fL (7.4-10.4); MONOCYTES 10.5 % (2-11); NEUTROPHILS 42.9 % (40-80); PLATELET COUNT 248 10x3/uL (130-400); RBC 2.88 10x6/uL (4.20-6.10); RDW 18.2 % (11.5-14.5); WBC 3.2 10x3/uL (4.8-10.8)
[2017-07-05 05:06] LABS: APTT 35.1 SECONDS (22.8-39.4); INR 1.03 (0.85-1.17); PROTIME 13.4 SECONDS (11.6-15.0)
[2017-07-05 05:08] LABS: ALBUMIN 2.2 g/dL (3.4-5.0); ALKALINE PHOSPHATASE 101 U/L (46-116); ALT (SGPT) 22 U/L (10-68); BILIRUBIN - TOTAL 0.45 mg/dL (0.2-1.3); CALC OSMOLALITY 293 mosm/kg (275-300); CALCIUM 7.6 mg/dL (8.5-10.1); CARBON DIOXIDE 32.3 mmol/L (21.0-32.0); CHLORIDE - SERUM 110 mmol/L (98-107); GLUCOSE 84 mg/dL (74-106); POTASSIUM - SERUM 3.5 mmol/L (3.5-5.1); PROTEIN - SERUM 6.2 g/dL (6.4-8.2); SODIUM 146 mmol/L (136-145); UREA NITROGEN 23 mg/dL (7-18); eGFR NON AFRICAN AMERICAN 77 mL/min (90-120)
--- NOTE | 2017-07-05 07:44 | NUR ---
AM ROUNDING- RECIEVED REPORT FROM COIL CONNECTOR REPAIRER NURSE CYNDY. PT IS CURRENTLY LAYING IN BED ON BACK WITH EYES CLOSED RESTING. ON ROOM AIR. NO MONITOR. NO IV ACCESS CURRENTLY. PER REPORT PT IS CONFUSED AT TIMES. KAE BED ALARM IS ON. PER REPORT PT IS SUPPOSE TO GO FOR BONE MARROW BIOPSY TODAY. NO ORDERS TO GET CONSENTS FOR BIOPSY AT THIS TIME. CYNDY RN STATES SHE WILL ATTEMPT TO SITE PT WITH IV CATHETER. BED IS IN LOW POSITION, SIDE RAILS ARE UP X2, AND CALL LIGHT IS IN REACH. WILL CONTINUE TO MONITOR AND CONTINUE WITH PLAN OF CARE.
--- NOTE | 2017-07-05 09:55 | NUR ---
7710- OMRGAN NAYLOR ATTEMPTED TO SITE PT WITH IV CATHETER AND WAS NOT ABLE TO. WILL PASS THIS ALONG TO DR. JOHNSON. 5579- DR. JOHNSON ON UNIT. INFORMED HIM OF PTS NOT HAVING IV CATHETER. DR. JOHNSON STATES THEY WILL HAVE TO PUT ONE IN WHEN PT GOES FOR PROCEDURE.
--- NOTE | 2017-07-05 09:58 | NUR ---
TELEPHONE CONSENTS OBTAINED BY PTS MURIEL (SISTER-IN LAW) JULIANA PALACIO. GUS HIDALGO RN WITNESSED TELEPHONE CONSENTS. CONSENTS NOW IN CHART.
--- NOTE | 2017-07-05 10:19 | NUR ---
SPOKE WITH PA PETTY, VASCULAR ACCESS NURSE AND PA STATES SHE WILL BE OVER TO UNIT SHORTLY TO ATTEMPT IV CATHETER.
--- NOTE | 2017-07-05 10:47 | NUR ---
PA PETTY, VASCULAR ACCESS NURSE SITED PT TO RIGHT HAND WITH 22G IV. CT IS AWARE PT NOW HAS IV.
--- NOTE | 2017-07-05 11:00 | NUR ---
Nutrition Follow Up: Per chart pt screaming early this am, was given meds and is now resting. Per chart pt is confused. Interview deferred. Pt is eating 42% meal avg on an ADA diet. +BM 07/02/17. No new wt to assess. Meds noted including Lasix. Labs reviewed. Will change diet to regular to encourage po intake. Will continue to provide selective menus and honor food preferences. RD following.
--- NOTE | 2017-07-05 11:09 | NUR ---
SPOKE WITH PTS MURIEL PALACIO AND RECIEVED TELEPHONE CONSENTS FOR ANESTHESIA FOR PROCEDURE. GUS HIDALGO RN WITNESSED TELEPHONE CONSENTS. CONSENTS PLACED IN CHART.
--- NOTE | 2017-07-05 15:13 | NUR ---
PT GIVEN PRE-OP MEDICATIONS ORDERED. IV FLUIDS HUNG WITH TUBING PRIMED.
--- NOTE | 2017-07-05 15:32 | NUR ---
PT TO PROCEDURE VIA BED.
--- NOTE | 2017-07-05 16:02 | NUR ---
PT BACK FROM PROCEDURE VIA BED.
--- NOTE | 2017-07-05 17:52 | NUR ---
PT IS CURRENTLY LAYING IN BED ON BACK WITH EYES OPEN RESTING. PT STATES HE DOES NOT WANT TO EAT DINNER. WHILE TAKING PTS VITAL SIGNS PTS BLOOD PRESSURE READINGS HAVE BEEN HIGH ON SEVERAL DIFFERENT READINGS. DR. ELIZABETH CRAVEN.
--- NOTE | 2017-07-05 18:24 | NUR ---
PT IS CURRENTLY LAYING IN BED ON BACK WITH EYES OPEN RESTING. EarDish BED ALARM IS ON. BED IS IN LOW POSITION, SIDE RAILS ARE UP X2, AND CALL LIGHT IS IN REACH.
--- NOTE | 2017-07-05 20:05 | NUR ---
PT LYING IN BED, YELLING OUT FOR HELP, STATES HE CANNOT BREATH, PT IS IN NO ACUTE DISTRESS. PT HAS PULLED OUT HIS IV WHICH WAS FOUND IN THE FLOOR, ALONG WITH HIS B/P CUFF AND HIS NASAL CANULA. B/P ELEVATED AT THIS TIME. BOX ALARM ATTACHED TO PT, CONTINUE TO MONITOR PT CLOSELY. BED LOW, CALL LIGHT IN REACH, SIDE RAILS X 2, HOB 20 DEGREES.
--- NOTE | 2017-07-05 23:26 | NUR ---
PT HAS BEEN YELLING OUT SINCE THE START OF MY SHIFT, SCREAMING FOR "MAMA", UNABLE TO BE REORIENTED OR CONSOLED. PT CANNOT TELL YOU OF ANY NEEDS OR REASON THAT HE YELLS OUT. PRN ATIVAN GIVEN IM. CONTINUE TO MONITOR PT CLOSELY. BED LOW, CALL LIGHT IN REACH, SIDE RAILS X 3, BOX ALARM ATTACHED TO PT, ON, AND FUNCTIONING. HOB 20 DEGREES.
[2017-07-06] VITALS: BP 164/75
--- NOTE | 2017-07-06 02:39 | NUR ---
PT RESTING COMFORTABLY, IN NO ACUTE DISTRESS, RESPIRATIONS EVEN AND UNLABORED. CONTINUE TO MONITOR PT CLOSELY. BED LOW, CALL LIGHT IN REACH, SIDE RAILS X 3, HOB 10 DEGREES. BOX ALARM ON AND ATTACHED TO PT.
--- NOTE | 2017-07-06 03:04 | NUR ---
PT AWAKE, YELLING UNCONTROLLABLY, CANNOT BE REORIENTED, AND IS WAKING UP EVERY PATIENT IN SURROUNDING ROOMS. I HAVE ASKED PT SEVERAL TIMES WHY HE IS YELLING AND WHAT HE NEEDS, IN WHICH HE DOES NOT ANSWER ME, HE ONLY STARES AT ME, THEN BEGINS YELLING SOON I WALK OUT OF HIS ROOM. WILL CONTINUE TO REORIENT PT AND MONITOR CLOSELY.
[2017-07-06 04:00] VITALS: BP 169/83
--- NOTE | 2017-07-06 04:47 | NUR ---
PT REMAINS AWAKE AND YELLING OUT LOUDLY, UNABLE TO BE REORIENTED, KEEPING OTHER PATIENTS AWAKE, AND CAUSING GREAT AGITATION WITH THE OTHER PATIENTS. WILL CONTINUE TO REORIENT AND MONITOR CLOSELY.
[2017-07-06 08:00] VITALS: BP 150/66
[2017-07-06] MEDS ORDERED: COZAAR50 MG PO (10:10)
--- NOTE | 2017-07-06 10:10 | NUR ---
Patient Name: BRIAN PALACIO Encounter No: [id number] : 1940 Primary Insurance: MEDICARE A & B Anticipated DC Date: Planned Disposition: Nursing Facility JOSY Cert External Planned Provider: [facility], RESIDENTIAL C[facility] MEDICAID BED DCP follow-up note: CM RECEIVED DISCHARGE ORDER, CALLED JANESSA DORADOER, [phone]- [phone], NOTIFIED OF DISCHARGE, DISCUSSED IMPORTANT MESSAGE FROM MEDICARE. BILL IN AGREEMENT WITH PT'S RETURN TO [facility], REPORTS THE DOCTOR DISCUSSED DISCHARGE WITH THEM YESTERDAY. CM LEFT IMPORTANT MESSAGE FROM MEDICARE IN ROOM, PT WAS NOT ABLE TO SIGN. CM NOTIFIED GRIFFIN, CLINICAL LIAISON FOR [facility] OF PT'S DISCHARGE TODAY, [facility] TO ACCEPT BACK FOR FOUNDATION RELATIONS DIRECTOR CARE. NURSE REPORT TO BE CALLED TO [facility] AT [phone], FAX DISCHARGE INFORMATION TO [facility] AT [phone]. TRANSPORTATION VIA AMBULANCE. Miniature Set Designer: Lester Betancur
[2017-07-06] MEDS ORDERED: DEPAKOTE500 MG PO (10:11)
[2017-07-06 12:00] VITALS: BP 171/82
[2017-07-06 12:14] LABS: SPE - A/G RATIO 0.8 (0.7-1.7); SPE - ALBUMIN 2.9 g/dL (2.9-4.4); SPE - ALPHA-1 GLOBULIN 0.3 g/dL (0.0-0.4); SPE - ALPHA-2 GLOBULIN 0.5 g/dL (0.4-1.0); SPE - BETA GLOBULIN 0.9 g/dL (0.7-1.3); SPE - GAMMA GLOBULIN 1.7 g/dL (0.4-1.8); SPE - M-SPIKE Not Observed g/dL (Not Observed); SPE - TOTAL PROTEIN 6.4 g/dL (6.0-8.5)
[2017-07-06 13:14] LABS: ERYTHROPOIETIN 60.4 mIU/mL (2.6-18.5)
--- NOTE | 2017-07-06 14:12 | NUR ---
REPORT CALLED TO [facility]
--- NOTE | 2017-07-06 15:25 | NUR ---
DC TO ID PER AMBULANCE
== END 2017-07-06 15:26 | DRG 812 ==
LOC: D.ER 03:19 → OBSVTIME 05:27 → D.M2 05:27
PROVIDERS: Emergency Medicine; Internal Medicine Gastroenterology; Internal Medicine Hematology & Oncology; ADMIT Family Medicine
PROC: 0DB68ZX Excision of Stomach, Via Natural or Artificial Opening Endoscopic, Diagnostic (ICD-10-PCS; 2017-07-01)
PROC: 0DB98ZX Excision of Duodenum, Via Natural or Artificial Opening Endoscopic, Diagnostic (ICD-10-PCS; principal; 2017-07-01 09:00)
PROC: 0DBM8ZZ Excision of Descending Colon, Via Natural or Artificial Opening Endoscopic (ICD-10-PCS; 2017-07-02)
PROC: 0DBL8ZZ Excision of Transverse Colon, Via Natural or Artificial Opening Endoscopic (ICD-10-PCS; 2017-07-02)
PROC: 07DR3ZX Extraction of Iliac Bone Marrow, Percutaneous Approach, Diagnostic (ICD-10-PCS; 2017-07-05)
DX: D62 Acute posthemorrhagic anemia (principal); K29.40 Chronic atrophic gastritis without bleeding; K44.9 Diaphragmatic hernia without obstruction or gangrene; D63.8 Anemia in other chronic diseases classified elsewhere; K31.7 Polyp of stomach and duodenum; E78.5 Hyperlipidemia, unspecified; M19.90 Unspecified osteoarthritis, unspecified site; I69.919 Unspecified symptoms and signs involving cognitive functions following unspecified cerebrovascular disease; F03.90 Unspecified dementia, unspecified severity, without behavioral disturbance, psychotic disturbance, mood disturbance, and anxiety; I11.0 Hypertensive heart disease with heart failure; I50.9 Heart failure, unspecified; K20.9 Esophagitis, unspecified; F41.9 Anxiety disorder, unspecified; I65.22 Occlusion and stenosis of left carotid artery; D12.4 Benign neoplasm of descending colon; D12.3 Benign neoplasm of transverse colon; K57.90 Diverticulosis of intestine, part unspecified, without perforation or abscess without bleeding; Z87.891 Personal history of nicotine dependence

== ENCOUNTER 2017-07-22 22:11 | Inpatient (IN) | payer MEDICARE ==
[~2017-07-22 22:11] MED LIST changes: +COZAAR50 MG PO; +DEPAKOTE500 MG PO
[2017-07-22 22:46] LABS: BASOPHILS 0.4 % (0-2); EOSINOPHILS 7.5 % (0-7); HEMATOCRIT 21.5 % (42.0-54.0); IMMATURE GRANULOCYTES 0.4 % (0-5); LYMPHOCYTES 41.7 % (15-50); MCH 30.5 pg (26.0-34.0); MCHC 31.6 g/dL (31.0-37.0); MCV 96.4 fL (80.0-100.0); MEAN PLATELET VOLUME 9.1 fL (7.4-10.4); MONOCYTES 12.4 % (2-11); NEUTROPHILS 37.6 % (40-80); RBC 2.23 10x6/uL (4.20-6.10); RDW 19.7 % (11.5-14.5); WBC 2.7 10x3/uL (4.8-10.8)
[2017-07-22 22:51] LABS: HEMOGLOBIN 6.8 g/dL (13.5-17.5); PLATELET COUNT 222 10x3/uL (130-400)
[2017-07-22 22:59] LABS: ALBUMIN 2.2 g/dL (3.4-5.0); ANION GAP 8.8 mmol/L (8-16); BILIRUBIN - TOTAL 0.31 mg/dL (0.2-1.3); CALCIUM 7.5 mg/dL (8.5-10.1); CREATININE - SERUM 1.2 mg/dL (0.6-1.3); POTASSIUM - SERUM 3.8 mmol/L (3.5-5.1); PROTEIN - SERUM 5.8 g/dL (6.4-8.2)
[2017-07-23] VITALS (7 sets, daily range): BP systolic 139–167; BP diastolic 67–101; BMI 30.7
--- NOTE | 2017-07-23 00:45 | NUR ---
PT ARRIVE VIA STRECHER. PT RECEIVING PRBC TO LEFT AC IV INFUSING AT 50ML/HR. PT HAS NO S/S OF A REACTION. PT BP IS 156/74 HR 54 TEMP 97.9 AXILLARY. O2 97% ROOMAIR. PT IS AAO X1. VERY IRRATABLE. WHEN ASKED PT TO LET ME LOOK AT HIS IV PT GOT LOUD AND UPSET. PULLED COVERS UP AND SAID TO LEAVE HIM ALONE HE IS COLD. TURNED HEAT UP TO MAKE PT COMFORTABLE. PT WENT RIGHT TO SLEEP. AROUSES TO VOICE. INCREASED THE BLOOD TO 100ML/HR. PT WONT FOLLOW COMMANDS OR ALLOW ME TO ASSESS. WILL TRY AGAIN . PT DENIES ANY NEEDS. WILL CPOC
--- NOTE | 2017-07-23 01:20 | NUR ---
PT REFUSED A WHOLE ASSESSMENT. PT LET ME LISTEN TO HIS HEART LUNGS AND ABD. PT LET ME PALPATE ABD. BUT REFUSED ALL OTHER PARTS OF ASSESSMENT. PT STILL RECEIVING BLOOD. NO S/S OF DISTRESS. OR REACTION. PT DENIES ANY NEEDS. NO S/S OF DISTRESS. WILL CPOC
--- NOTE | 2017-07-23 06:20 | NUR ---
PT SMALL AMOUNT OF INCONT URINE. PT CLEANED. PAD CHANGED. NO NEEDS.,NO S/S OF DISTRESS. WILL CPOC
--- NOTE | 2017-07-23 07:15 | NUR ---
REPORT RECIEVED. PT RESTING QUIELTY, RR EVEN AND UNLABORED. ORIENTED TO PERSON ONLY, PT BEING COOPERATIVE THIS MORNING. DENIES NEEDS AT THIS TIME. VSS SINCE BLOOD TRANSFUSION. WILL CTM.
--- NOTE | 2017-07-23 10:45 | NUR ---
PRBC TRANSFUSION INTITAITED. VSS, RR EVEN AND UNLABORED. RESITED PTS IV PRIOR TO STARTING BLOOD - 20G TO RIGHT FOREARM X5 STICK. PA PTETY INSERTED IV X1 STICK, AFTER FLOOR NURSES TRIED X5. PT ON FREQUENT VS, WILL STAY WITH PT FOR FIRST 15 MINUTES OF TRANSFUSION.
--- NOTE | 2017-07-23 11:01 | NUR ---
PT RESTING QUIETLY, RR EVEN AND UNLABORED. VS HAVE REMAINED STABLE SINCE BLOOD STARTED. WILL CTM.
--- NOTE | 2017-07-23 13:00 | NUR ---
BLOOD TRANSFUSION COMPLETE. RR EVEN AND UNALBORED. VSS. WILL CTM.
--- NOTE | 2017-07-23 15:30 | NUR ---
PT REMOVED IV FROM LEFT FOREARM. WILL NOT RESTART IV AT THIS TIME, PT CONTINUES TO REMOVE. WILL INSERT IV WHEN PT IS CALMER. WILL CTM.
[2017-07-23 16:22] LABS: BASOPHILS 0.6 % (0-2); EOSINOPHILS 10.4 % (0-7); HEMATOCRIT 25.6 % (42.0-54.0); IMMATURE GRANULOCYTES 0.3 % (0-5); LYMPHOCYTES 35.9 % (15-50); MCH 30.4 pg (26.0-34.0); MCHC 32.8 g/dL (31.0-37.0); MEAN PLATELET VOLUME 9.6 fL (7.4-10.4); MONOCYTES 11.9 % (2-11); NEUTROPHILS 40.9 % (40-80); PLATELET COUNT 225 10x3/uL (130-400); RDW 20.5 % (11.5-14.5)
[2017-07-23 16:23] LABS: RBC 2.76 10x6/uL (4.20-6.10); WBC 3.4 10x3/uL (4.8-10.8)
[2017-07-23 16:24] LABS: HEMOGLOBIN 8.4 g/dL (13.5-17.5); MCV 92.8 fL (80.0-100.0)
[2017-07-23 16:30] LABS: APTT 30.9 SECONDS (22.8-39.4); INR 1.08 (0.85-1.17); PROTIME 13.9 SECONDS (11.6-15.0)
[2017-07-23 17:08] LABS: FERRITIN 1323 ng/mL (3-244); LDH 189 U/L (85-227)
--- NOTE | 2017-07-23 18:15 | NUR ---
PT RESTING QUIELTY. RR EVEN AND UNLABORED. PT DENIES NEEDS AT THIS TIME, WILL GIVE REPORT ON PT CONDITION FOR THE DAY.
--- NOTE | 2017-07-23 19:22 | NUR ---
PT IN BED. DENIES NEEDS AT THIS TIME. WILL CONTINUE TO MONITOR.
[2017-07-24] VITALS: BP 153/77
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
[2017-07-24 04:00] VITALS: BP 176/81
--- NOTE | 2017-07-24 07:30 | NUR ---
AM ROUNDS COMPLETED. PT RESTING QUIETLY IN BED WITH EYES CLOSED. RR NONLABORED ON RA. NO S/S OF DISTRESS OR ANY CURRENT NEEDS AT THIS TIME. CL IN REACH. WILL CPOC.
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
[2017-07-24 08:38] LABS: BASOPHILS 0.6 % (0-2); EOSINOPHILS 11.2 % (0-7); HEMATOCRIT 26.3 % (42.0-54.0); HEMOGLOBIN 8.4 g/dL (13.5-17.5); IMMATURE GRANULOCYTES 0.3 % (0-5); LYMPHOCYTES 36.9 % (15-50); MCH 29.7 pg (26.0-34.0); MCHC 31.9 g/dL (31.0-37.0); MCV 92.9 fL (80.0-100.0); MEAN PLATELET VOLUME 9.5 fL (7.4-10.4); MONOCYTES 11.2 % (2-11); NEUTROPHILS 39.8 % (40-80); PLATELET COUNT 225 10x3/uL (130-400); RBC 2.83 10x6/uL (4.20-6.10); RDW 20.2 % (11.5-14.5); WBC 3.6 10x3/uL (4.8-10.8)
[2017-07-24 08:57] LABS: CALC OSMOLALITY 282 mosm/kg (275-300); CALCIUM 7.7 mg/dL (8.5-10.1); CARBON DIOXIDE 31.1 mmol/L (21.0-32.0); CHLORIDE - SERUM 107 mmol/L (98-107); CREATININE - SERUM 0.9 mg/dL (0.6-1.3); GLUCOSE 84 mg/dL (74-106); POTASSIUM - SERUM 3.9 mmol/L (3.5-5.1); SODIUM 141 mmol/L (136-145); UREA NITROGEN 22 mg/dL (7-18); eGFR NON AFRICAN AMERICAN 87 mL/min (90-120)
[2017-07-24 12:00] VITALS: BP 158/73
--- NOTE | 2017-07-24 12:23 | NUR ---
PT REMAINS TO STAY SLEEPY AND UPON BEING WOKE GETS VERY AGITATED AND COMBATIVE. PT STILL REFUSING TO EAT. WILL ALLOW HIM TO REST LONGER. PT IS NEEDING A UNIT OF BLOOD AND WE ARE WAITING ON BLOOD BANK THEN WILL ATTEMPT TRANSFUSION.
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
--- NOTE | 2017-07-24 15:08 | NUR ---
PT ORDERED TO HAVE PRBC TRANSFUSION. CONSENT SIGNED AND ON THE FRONT OF CHART. PRBC STARTED, VS ARE WNL WITH EXCEPTION OF BP 183/79. PT IS REFUSING TO TAKE BP MEDS. SOCORRO MORA NOTIFIED, SHE IS PAGING DR JOHNSON. WILL CONT TO MONITOR CLOSELY.
--- NOTE | 2017-07-24 15:23 | NUR ---
PT PRBC STILL INFUSING WITHOUT ANY PROBLEMS TO LEFT UPPER ARM 20G. NO PROBLEMS. VS ARE WNL BP DOWN NOW TO 167/75 HR IS 48.
--- NOTE | 2017-07-24 15:47 | NUR ---
PT LYING DOWN FLAT WHILE RECIEVING BLOOD TRANSFUSION. PT BEING CALM AND COOPERATIVE. VSS AND STILL BEING MONITERED. PT DENIES ANY CURRENT PAIN OR NEEDS. WILL CPOC.
[2017-07-24 16:00] VITALS: BP 165/76
--- NOTE | 2017-07-24 17:00 | NUR ---
BLOOD STILL TRANSFUSING ALMOST COMPLETED. NEVER RETURNED PAGE BUT VSS AND PT DENIES ANY CURRENT PAIN OR NEEDS AT THIS TIME. CL IN REACH, WILL CPOC.
--- NOTE | 2017-07-24 19:18 | NUR ---
RECEIVED REPORT, WILL ASSUME CARE OF PT, PT TELLS ME TO BACK OFF AND LEAVE HIM ALONE, PT BED IS LOW, SRX2, CALL LIGHT IN REACH, WILL CONTINUE PLAN OF CARE
[2017-07-24 20:00] VITALS: BP 153/75
--- NOTE | 2017-07-24 20:22 | NUR ---
PT AGREEED TO TAKE DEPAKOTE
[2017-07-25] VITALS: BP 166/71
--- NOTE | 2017-07-25 03:20 | NUR ---
ASSESSMENT COMPLETE, PT IS SLEEPING, NO DISTRESS NOTICED, CALL LIGHT IN REACH, WILL CONTINUE PLAN OF CARE
[2017-07-25 04:00] VITALS: BP 162/69
--- NOTE | 2017-07-25 05:35 | NUR ---
PT HAS PULLED OUT HIS IV. HE IS CONFUSED, BUT BEING COOPERATIVE. WILL SEE IF MD FEELS IV NEEDS RESITED THIS AM. LETTING PT REST FOR NOW.
[2017-07-25 05:51] LABS: EOSINOPHILS 10.9 % (0-7); HEMATOCRIT 26.6 % (42.0-54.0); HEMOGLOBIN 8.6 g/dL (13.5-17.5); IMMATURE GRANULOCYTES 0.3 % (0-5); LYMPHOCYTES 34.5 % (15-50); MCH 29.7 pg (26.0-34.0); MCHC 32.3 g/dL (31.0-37.0); MCV 91.7 fL (80.0-100.0); MEAN PLATELET VOLUME 9.9 fL (7.4-10.4); MONOCYTES 11.2 % (2-11); NEUTROPHILS 42.1 % (40-80); PLATELET COUNT 221 10x3/uL (130-400); RDW 20.1 % (11.5-14.5)
[2017-07-25 06:15] LABS: CALC OSMOLALITY 283 mosm/kg (275-300); CALCIUM 7.8 mg/dL (8.5-10.1); CARBON DIOXIDE 32.4 mmol/L (21.0-32.0); CHLORIDE - SERUM 105 mmol/L (98-107); CREATININE - SERUM 0.8 mg/dL (0.6-1.3); GLUCOSE 76 mg/dL (74-106); POTASSIUM - SERUM 3.3 mmol/L (3.5-5.1); SODIUM 142 mmol/L (136-145); UREA NITROGEN 17 mg/dL (7-18); eGFR NON AFRICAN AMERICAN > 90 mL/min (90-120)
--- NOTE | 2017-07-25 07:45 | NUR ---
AM ROUNDS COMPLETED. SHIFT ASSESSMENT DONE. PT REFUSED TO ALLOW ME TO LISTEN TO HIS LUNGS OR HEART BUT NO NOTED CHANGES SINCE YESTERDAY. PT HAS PULLED OUT PIV ON NIGHTSHIFT AND HAS NO ACCESS. PT SHOULD BE DISCHARGED BACK TO [place] TODAY. CL IN REACH. NO CURRENT NEEDS. WILL CPOC.
[2017-07-25 08:00] VITALS: BP 158/70
--- NOTE | 2017-07-25 11:44 | NUR ---
MAKING ROUNDS. PLANS ON SENDING PT BACK TO [place] TODAY AND FOLLOW UP BLOOD TRANSFUSIONS OUTPATIENT. PT HAS CHRONIC ANEMIA AND JUST LAYS IN BED REFUSES TO EAT OR DRINK OR COOPERATE MOST TIMES. QUALITY OF LIFE VERY POOR. PT CURRENTLY DENIES ANY NEEDS AND STILL REFUSING TO EAT OR DRINK. CL IN REACH AND BED ALARM ON. WILL CPOC.
--- NOTE | 2017-07-25 12:39 | NUR ---
NURSING REPORT CALLED TO NURSE FROM [facility]. PT WILL BE TRANSPORTED VIA AMBULANCE. WILL CALL THEM AND BEGIN DISCHARGE PAPERS. NO CURRENT NEEDS.
--- NOTE | 2017-07-25 12:47 | NUR ---
PATIENT TO BE DISCHARGED BACK TO [facility] TODAY. TELEPHONE FACILITY AT [phone]. SPOKE WITH LAVINIA. FAXED H/P, DISCHARGE SUMMARY, DR FRIEND'S HEME/ONC CONSULT AND PROGRESS NOTE TO [phone]. RIGOBERTO SPOKE WITH HIS PRIMARY NURSE, SOCORRO. PROVIDED CONTACT PHONE NUMBER FOR HER TO CALL REPORT. GAVE HER THE PCS FORM FOR AMBULANCE TRANSPORTATION. PATIENT IS BEING ADMITTED TO A HALFWAY BED PER LAVINIA.
--- NOTE | 2017-07-25 13:30 | NUR ---
DISCHARGE PAPERS SIGNED PER DOUBLE NURSE WITNESS PT IS TOO CONFUSED TO SIGN FOR SELF. COMPLETED BED BATH GIVEN PT IS SOILED WITH URINE. PT BEING COOPERATIVE AT THIS TIME. STILL AWAITING AMBULANCE FOR TRANSPORTATION.
--- NOTE | 2017-07-25 13:43 | NUR ---
[facility] PT BEING COOPERATIVE AND TRANSFERRED ONTO THEIR STRETCHER NO FURTHER NEEDS. NOW LEAVING UNIT.
== END 2017-07-25 13:46 | DRG 815 ==
LOC: D.ER 22:11 → D.M2 23:35 → OBSVTIME 23:35 → D.M2 23:35
PROVIDERS: Emergency Medicine; Internal Medicine Hematology & Oncology; ADMIT Family Medicine
DX: D75.89 Other specified diseases of blood and blood-forming organs (principal); I69.954 Hemiplegia and hemiparesis following unspecified cerebrovascular disease affecting left non-dominant side; F01.51 Vascular dementia, unspecified severity, with behavioral disturbance; D63.8 Anemia in other chronic diseases classified elsewhere; R41.0 Disorientation, unspecified; I69.919 Unspecified symptoms and signs involving cognitive functions following unspecified cerebrovascular disease; R56.9 Unspecified convulsions; K57.90 Diverticulosis of intestine, part unspecified, without perforation or abscess without bleeding; E78.5 Hyperlipidemia, unspecified; K21.9 Gastro-esophageal reflux disease without esophagitis; F41.9 Anxiety disorder, unspecified; M19.90 Unspecified osteoarthritis, unspecified site; N40.0 Benign prostatic hyperplasia without lower urinary tract symptoms; K59.00 Constipation, unspecified; I11.0 Hypertensive heart disease with heart failure; I50.9 Heart failure, unspecified; K44.9 Diaphragmatic hernia without obstruction or gangrene; K29.70 Gastritis, unspecified, without bleeding; Z86.010 Personal history of colon polyps; Z87.891 Personal history of nicotine dependence

== ENCOUNTER 2017-08-20 12:26 | Outpatient (CLI) | payer MEDICARE ==
[2017-08-20 15:05] VITALS: BP 104/59; BMI 30.7
--- NOTE | 2017-08-20 15:33 | NUR ---
HISTORY POOR HISTORY DUE TO PATIENT'S MENTAL STATE. HISTORY DONE OFF OF PATIENT'S DETENTION RECORDS.
--- NOTE | 2017-08-20 16:12 | NUR ---
1600 REPORT FROM JASPAL ARNETT R.N. RESTING WITH EYES CLOSED BLOOD INFUSING VIA LEFT ARM NO S/S OF BLOOD REACTIONS NOTED. NO NEEDS VOISED.
--- NOTE | 2017-08-20 18:30 | NUR ---
1715 TRAY FOR SUPPER SERVED. TOLERATED 50 %. BLOOD COMPLETED. NO S/S OF BLOOD TRANSFUSION NOTED. FLUSHED WITH SALINE.
--- NOTE | 2017-08-20 18:33 | NUR ---
174 DIAPER CHANGED URINATED.
--- NOTE | 2017-08-20 18:34 | NUR ---
1735 2ND UNIT OF PRBCS CHECKED BY 2 R.N.S AND NEW BLOOD TUBING HUNG. INFUSING WITHOUT S/S OF BLOOD REACTIONS.
--- NOTE | 2017-08-20 18:35 | NUR ---
180 WENT TO GET VITAL SIGNS PATIENT HAD IV TUBING IN HIS HAND WHERE HE PULLED IT OUT. PATIENT IS CONFUSED AND TOLD PATIENT HE WAS RECEIVING BLOOD. BLOOD GOT ON SHIRT. SHIRT CHANGED HANDS WASHED. CATHETER INTACT. 1809 RESITED IV RT WRIST 20 GAUGE 1 STICK GOOD BLOOD RETURN INFUSING AT 125 CC/HR NO S/S OF BLOOD REACTIONS NOTED.
--- NOTE | 2017-08-20 18:57 | NUR ---
1830 SLEEEPING WITH EYES CLOSED. RESP EVEN AND NONLABORED. NO S/S OF BLOOD REACTIONS NOTED. IV SITE RT WRIST NO REDNESS OR SWELLING.
--- NOTE | 2017-08-20 19:12 | NUR ---
1905 V/S STABLE. NO S/S OF BLOOD REACTION NOTED. IV RT WRIST NO REDNESS OR SWELLING.ICE CREAM SERVED.
--- NOTE | 2017-08-20 20:22 | NUR ---
2014 ASSISTED PATIENT FROM STRETCHE TO BED PUNCHING AND CURSING ANDCOMBATIVE. GOT PATIENT TO BED. NURSE PRESENT NO S/S OF BLOOD REACTIONS NOTED.
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
--- NOTE | 2017-08-20 20:30 | NUR ---
BLOOD COMPLETE. NS INFUSING.
--- NOTE | 2017-08-20 20:58 | NUR ---
EBONY BUSH CALLED TO INDUSTRIAL GAS PRODUCTION OPERATOR PT
--- NOTE | 2017-08-20 22:57 | NUR ---
JOSE'D TO [employer] MONT[place]O.
== END 2017-08-20 22:57 ==
LOC: D.OPS 12:26 → D.MS 19:36 → D.OPS 22:57
DX: D64.9 Anemia, unspecified (principal)

== ENCOUNTER 2017-09-03 13:34 | Outpatient (CLI) | payer MEDICARE ==
--- NOTE | 2017-09-03 14:23 | NUR ---
PT FROM [facility], LIMITED PAPERWORK SENT, PT UNABLE TO ANSWER QUESTIONS TO OBTAIN HISTORU\Y. VERBAL TELEPHONE CONSENT OBTAINED FROM JULIANA PALACIO PT MURIEL. TIARRA GREGG RN
--- NOTE | 2017-09-03 23:58 | NUR ---
PATIENT DC'D TO [facility] VIA [facility].
== END 2017-09-03 23:57 ==
LOC: D.OPS 13:34 → D.MS 19:45 → D.OPS 23:57
DX: D64.9 Anemia, unspecified (principal)

== ENCOUNTER 2017-09-15 10:02 | Outpatient (CLI) | payer MEDICARE ==
[2017-09-15 13:04] VITALS: BP 98/47; Ht 188 cm
--- NOTE | 2017-09-15 13:28 | NUR ---
HAS EATEN LUNCH. #20 GUAGE IV STARTED X 1 STICK. PRBC'S STARTED WITH NS AND BLOOD TUBING. INCONTINENT OF URINE AND LARGE SOFT YELLOW BM, CLEANSED, NEW DIAPER PLACED ON.
--- NOTE | 2017-09-15 15:45 | NUR ---
FIRST UNIT OF PRBC'S COMPLETED. SECOND UNIT OF PRBC'S UP WITH NS AND BLOOD TUBING. RESPIRATIONS WITHOUT DISTRESS. SLEEPING, ARROUSES EASILY TO VERBAL STIMULI.
--- NOTE | 2017-09-15 17:00 | NUR ---
PRBC'S INFUSING WITHOUT SIGNS OF REACTION. SLEEPING, RESPIRATIONS QUIET AND EASY, OXYGEN SATURATION 97%. REPORT TO JASPAL FALK RN.
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
--- NOTE | 2017-09-15 18:44 | NUR ---
1800 REPOSITIONED PATIENT AND HAD NURSE HELP ASSIST WITH DIAPER CHANGE, [facility]ESHAM [facility] GIVEN.
--- NOTE | 2017-09-15 18:45 | NUR ---
1805 2ND UNIT OF PRBS COMPLETE. FLUSHED WITH SALINE. NO S/S OF BLOOD REACTIONS NOTED.
--- NOTE | 2017-09-15 18:46 | NUR ---
1814 3RD UNIT OF BLOOD CHECKED BY 2 R.N. NEW BLOOD TUBING HUNG. STARTED AT 75 CC HR TO RT ARM IV SITE NO REDNESS OR SWELLING. LEFT ARM REMAINS SWOLLEN.
--- NOTE | 2017-09-15 18:47 | NUR ---
1830 BLOOD INFUSING NO S/S OF BLOOD REACTIONS NOTE.
--- NOTE | 2017-09-15 19:26 | NUR ---
1900 V/S STABLE NO S/S OF BLOOD REACTIONS.
--- NOTE | 2017-09-15 19:38 | NUR ---
1938 REPORT TO RHector TO ROOM VIA STRETCHER.
--- NOTE | 2017-09-15 19:41 | NUR ---
REPORT TO SARAH REEDER NURSE.
--- NOTE | 2017-09-15 20:02 | NUR ---
PT ARRIVED ON UNIT VIA STRETCHER. MOVED PT INTO BED. KAE PAD ALARM TURNED ON. DIDE RAILS X3. BED IN LOWEST POSITIONA ND CALL LIGHT WIHTIN REACH. PT RECEIVING BLOOD. NEXT VITALS TO BE TAKEN AT 2014. WILL CONTINUE TO MONITOR PT.
--- NOTE | 2017-09-15 23:56 | NUR ---
RIGHT FA IV TAKEN OUT. WOOL SHEARING SUPERVISOR FROM [employer] HERE TO [place] LEASING INFORMATION CLERK PT. VLADIMIREWORK GIVEN TO WOOL SHEARING SUPERVISOR.
--- NOTE | 2017-09-16 00:04 | NUR ---
PATIENT LEAVING WITH STAFF MEMBER FROM [facility].
== END 2017-09-16 00:05 | disposition other institution (70) ==
LOC: D.OPS 10:02 → D.MS 19:39 → D.OPS 09-16 00:05
DX: D64.9 Anemia, unspecified (principal)

== ENCOUNTER 2017-09-19 16:14 | Inpatient (IN) | payer MEDICARE ==
[~2017-09-19] VITALS: Ht 188 cm; Wt 108.4 kg
[2017-09-19 17:38] LABS: BASOPHILS 0.2 % (0-2); EOSINOPHILS 5.5 % (0-7); HEMOGLOBIN 9.9 g/dL (13.5-17.5); IMMATURE GRANULOCYTES 0.7 % (0-5); LYMPHOCYTES 23.2 % (15-50); MCH 28.9 pg (26.0-34.0); MCHC 30.9 g/dL (31.0-37.0); MCV 93.3 fL (80.0-100.0); MEAN PLATELET VOLUME 9.8 fL (7.4-10.4); MONOCYTES 10.8 % (2-11); NEUTROPHILS 59.6 % (40-80); PLATELET COUNT 239 10x3/uL (130-400); RBC 3.43 10x6/uL (4.20-6.10); RDW 17.7 % (11.5-14.5); WBC 4.4 10x3/uL (4.8-10.8)
[2017-09-19 17:56] LABS: ALBUMIN 2.1 g/dL (3.4-5.0); ALKALINE PHOSPHATASE 60 U/L (46-116); ALT (SGPT) 14 U/L (10-68); BILIRUBIN - TOTAL 0.33 mg/dL (0.2-1.3); CALC OSMOLALITY 309 mosm/kg (275-300); CARBON DIOXIDE 32.9 mmol/L (21.0-32.0); CHLORIDE - SERUM 113 mmol/L (98-107); MAGNESIUM - SERUM 2.1 mg/dL (1.8-2.4); POTASSIUM - SERUM 3.4 mmol/L (3.5-5.1); PROTEIN - SERUM 6.1 g/dL (6.4-8.2); SODIUM 152 mmol/L (136-145); UREA NITROGEN 32 mg/dL (7-18); eGFR NON AFRICAN AMERICAN 77 mL/min (90-120)
[2017-09-19 18:00] LABS: GLUCOSE 116 mg/dL (74-106)
--- NOTE | 2017-09-19 19:50 | NUR ---
SPOKE WITH DR. BUITRAGO IN REGARDS TO PATIENT. DR. BUITRAGO STATED THAT HE HAS NOT SEEN THIS PATIENT IN MORE THAN A YEAR AND THAT FOR THE LAST THREE ADMISSIONS THE PATIENT HAS BEEN ADMITTED TO DR. JOHNSON. DR. BUITRAGO REQUESTED THAT DR. JOHNSON BE CONTACTED FOR THE PATIENT TO BE ADMITTED TO HIM.
--- NOTE | 2017-09-19 20:23 | NUR ---
PAGED DR. JOHNSON IN REGARDS TO PATIENT BEING ADMITTED
--- NOTE | 2017-09-19 20:41 | NUR ---
SPOKE WITH DR. JOHNSON IN REGARDS TO THE PATIENT BEING ADMITTED TO HIM. DR. JOHNSON REQUESTED ALL OF THE PATIENT'S HOME MEDS BE RESTARTED.
--- NOTE | 2017-09-19 23:05 | NUR ---
I SPOKE WITH ARPAN AT [facility] TO SEND ME A COPY OF THE PATIENT'S LAST DOSE ON HIS MEDS.
[2017-09-19] MEDS ORDERED: REMERON15 MG PO (23:25)
[2017-09-19] MEDS ORDERED: KLONOPIN0.5 MG PO (23:28)
[2017-09-19] MEDS ORDERED: NUEDEXTA 20-101 EACH PO (23:31)
[2017-09-19] MEDS ORDERED: DOXYCYCLINE HY100 M2 PO (23:33)
--- NOTE | 2017-09-20 00:05 | NUR ---
SPOKE WITH SILVANO SOUND ART INSTRUCTOR IN REGARDS TO PULLING UNVERIFIED MEDS
[2017-09-20 00:21] VITALS: BP 179/88; BMI 30.7
[2017-09-20 04:00] VITALS: BP 145/63
[2017-09-20 05:59] LABS: BASOPHILS 0.3 % (0-2); EOSINOPHILS 5.7 % (0-7); HEMATOCRIT 29.4 % (42.0-54.0); HEMOGLOBIN 9.1 g/dL (13.5-17.5); IMMATURE GRANULOCYTES 0.5 % (0-5); LYMPHOCYTES 24.2 % (15-50); MCH 28.9 pg (26.0-34.0); MCV 93.3 fL (80.0-100.0); MEAN PLATELET VOLUME 9.9 fL (7.4-10.4); MONOCYTES 9.3 % (2-11); PLATELET COUNT 241 10x3/uL (130-400); RBC 3.15 10x6/uL (4.20-6.10); RDW 17.6 % (11.5-14.5); WBC 3.9 10x3/uL (4.8-10.8)
[2017-09-20 06:21] LABS: CALC OSMOLALITY 306 mosm/kg (275-300); CALCIUM 8.2 mg/dL (8.5-10.1); CARBON DIOXIDE 34.3 mmol/L (21.0-32.0); CHLORIDE - SERUM 114 mmol/L (98-107); GLUCOSE 88 mg/dL (74-106); POTASSIUM - SERUM 3.4 mmol/L (3.5-5.1); SODIUM 152 mmol/L (136-145); UREA NITROGEN 29 mg/dL (7-18); eGFR NON AFRICAN AMERICAN 77 mL/min (90-120)
--- NOTE | 2017-09-20 07:30 | NUR ---
RECIEVED PT DURING WALKING ROUNDS. PT RESTING IN BED WITH NO COMPLAINTS OF PAIN OR DISCOMFORT AT THIS TIME. ASSESSMENT DONE PER FLOWSHEET. BED IN LOW POSITION AND CALL LIGHT WITHIN REACH. WILL CONTINUE TO MONITOR.
[2017-09-20 08:49] VITALS: BP 166/87
[2017-09-20 12:10] VITALS: BP 150/54
[2017-09-20 15:09] VITALS: Ht 188 cm; Wt 108.4 kg
[2017-09-20 16:45] VITALS: BP 179/76
--- NOTE | 2017-09-20 19:51 | NUR ---
RESTING, WATCHING TV, DENIES NEEDS, BED LOWEST POSITION, CALL LIGHT IN REACH, KAE ALARM ON, WILL CONTINUE TO MONITOR
[2017-09-21 04:00] VITALS: BP 100/85
--- NOTE | 2017-09-21 08:14 | NUR ---
Patient Name: BRIAN PALACIO Admission Status: ER Accout number: [id number] Admission Date: 09-19-2017 : 1940 Admission Diagnosis: Attending: FRANCE JOHNSON Current LOS: 2 Anticipated DC Date: 09-24-2017 Planned Disposition: Nursing Facility [facility] Primary Insurance: MEDICARE A & B Discharge Planning Comments: CM MET WITH PATIENT AND THEN CALLED HIS POA (JULIANA PALACIO). PATIENT IS A RESIDENT AT [facility]. PATIENT IS LIFTED BY A BIRD LIFT TO WHEELCHAIR AT FACILITY. PATIENTS PCP IS DR. JOHNSON AND PHARMACY IS IN HOUSE AT [facility]. PATIENT WILL RETURN TO [place] AT DISCHARGE. PCP DR. JOHNSON IN HOUSE [facility] ([facility] [phone] Lan Manager: Nikki Villanueva Is the patient Alert and Oriented? No 0 * How many steps to enter\exit or inside your home? 0 0 * PCP DR. JOHNSON 0 * Pharmacy IN HOUSE AT [facility] 0 * Preadmission Environment Half-Way Long-Term 0 * Facility Name [facility] 0 * ADLs Partial Dependent 0 * Partial ADLs (Assistance needed) Bathing Dressing Medication Management Toileting Transfers 0 * Equipment Hospital Bed Wheelchair 0 * Other Equipment EQUIPMENT AT FACILITY IF NEEDED 0 * List name and contact numbers for known caregivers / representatives who currently or will assist patient after discharge: CLIFF LOPEZ ([facility]) [phone] * Community resources currently utilized None 0 * Additional services required to return to the preadmission environment? Yes 0 * Can the patient safely return to the preadmission environment? Yes 0 * Has this patient been hospitalized within the prior 30 days at any hospital? No 0 Grand Total: 0
[2017-09-21 12:45] VITALS: BP 167/76
--- NOTE | 2017-09-21 13:23 | NUR ---
RESTING QUIETLY WITH EYES CLOSED. RESP EVEN,NONLABORED. CONTACT ISOLATION.
--- NOTE | 2017-09-21 20:04 | NUR ---
CHANGED LINENS AND GOWN, PT FOUGHT AND YELLED DURING, CALL LIGHT IN REACH, BED ALARM ON, BED LOWEST POSITION, WILL CONTINUE TO MONITOR
[2017-09-21 20:44] VITALS: BP 151/89
[2017-09-22 04:59] VITALS: BP 146/72
--- NOTE | 2017-09-22 06:37 | NUR ---
EYES CLOSED RESPIRATIONS WITH EASE AND UNLABORED. SR UP X2 CALL LIGHT WITHIN REACH.
[2017-09-22 08:25] VITALS: BP 182/70
--- NOTE | 2017-09-22 08:30 | NUR ---
PT IS LYING IN BED ON BACK, EYES CLOSED, EVEN RISE AND FALL OF CHEST, EASILY AWAKEN. VOICED NO NEEDS AT THIS TIME, CONTINUE WITH PLAN OF CARE
--- NOTE | 2017-09-22 10:15 | NUR ---
PT VERY COMBATIVE WHEN ASSISITNG CARE REP TO TURN AND CHANGE PT GOWN AND BEDDING. PT THEN REFUSED TO TAKE MEDS AND WOULD NOT LISTEN TO FAMILY OR STAFF. ADVISED PT I AM UNABLE TO HELP HIM IF HE CONTINUES TO REFUSE HELP. WILL CONTINUE TO TRY AND GET PT TO ALLOW US TO PROVIDE CARE NEEDED
--- NOTE | 2017-09-22 11:14 | NUR ---
LYING IN BED,WITHOUT DISTRESS.ISOLATION MAINTAINED.
[2017-09-22 12:00] VITALS: BP 165/76
--- NOTE | 2017-09-22 13:16 | NUR ---
NUTRITION F/U CHART REVIEWED, PT REMAINS IN ISOLATION. POOR PO INTAKE PER CHART NOTES. WILL CONTINUE TO PROVIDE DIET. MONITOR PT PROGRESS. RD FOLLOWING
--- NOTE | 2017-09-22 13:45 | NUR ---
SPOKE TO DR JOHNSON IN REGARDS TO PT BEHAVIOR AND REFUSAL FOR MEDICAL CARE. PER DR JOHNSON ADMIN PRN MEDS AND THEN TRY AND OBTAIN LABS AND OTHER ORDERS THAT ARE FOR PT. SPOKE TO PT ABOUT TALKING WITH DR JOHNSON AND PT STATED HE WILL TRY AND COOPERATE MORE
--- NOTE | 2017-09-22 14:28 | NUR ---
PT ALLOWED ME TO ADMIN IV MEDS, REFUSED PO MEDS. REMIMINDED PT HE SAID HE WOULD TRY AND COOPERATE PT THEN CLOSED EYES AND PRETENDED TO SLEEP
[2017-09-22 16:00] VITALS: BP 166/70
[2017-09-22 20:55] VITALS: BP 179/80
--- NOTE | 2017-09-22 22:05 | NUR ---
RED'D LYING IN BED. COULD NOT TELL ME HIS NAME OR WHERE HE WAS. IS YELLING OUT. CHECKED ON HIM AND HE JUST ANSWERED [place]ERCREAME TO ALL MY QUESTIONS. WILL CONT TO MONITOR. INSTRUCTED TO CALL IF NEEDED ANYTHING. NO DISTRESS NOTED. BED LOW, LOCKED, CALL LIGHT IN REACH, ALARM ON.
[2017-09-22 23:46] VITALS: BP 176/78
--- NOTE | 2017-09-23 01:30 | NUR ---
PATIENT IS RESTING QUIETLY WITH EYES CLOSED. NO SIGNS OF DISTRESS NOTED. BED IN LOWEST POSITION, CALL LIGHT IN REACH. BED RIALS UP X'S 2. HOB 30 DEGREES.
[2017-09-23 04:00] VITALS: BP 162/70
--- NOTE | 2017-09-23 07:10 | NUR ---
PT IS YELLING AND STATED HE IS IN PAIN, ADMIN PRN PAIN MEDICATION AND ATIVAN TO CALM PT DOWN, WENT AHEAD AND HAD LABS ORDERED SO THAT LEVELS MAY BE CHECKED. PT ARM LOOKS TO BE HEALING BETTER, NO OTHER NEEDS AT THIS TIME, CONTINUE WITH PT CARE
[2017-09-23 08:00] VITALS: BP 135/65
[2017-09-23 08:23] LABS: BASOPHILS 0.3 % (0-2); EOSINOPHILS 7.8 % (0-7); HEMATOCRIT 27.7 % (42.0-54.0); HEMOGLOBIN 8.6 g/dL (13.5-17.5); IMMATURE GRANULOCYTES 0.3 % (0-5); LYMPHOCYTES 29.6 % (15-50); MCH 28.9 pg (26.0-34.0); MEAN PLATELET VOLUME 9.2 fL (7.4-10.4); MONOCYTES 10.3 % (2-11); RBC 2.98 10x6/uL (4.20-6.10); RDW 16.8 % (11.5-14.5); WBC 3.2 10x3/uL (4.8-10.8)
[2017-09-23 08:35] LABS: PLATELET COUNT 184 10x3/uL (130-400)
[2017-09-23 08:37] LABS: ALBUMIN 1.9 g/dL (3.4-5.0); ALKALINE PHOSPHATASE 63 U/L (46-116); ALT (SGPT) 14 U/L (10-68); BILIRUBIN - TOTAL 0.45 mg/dL (0.2-1.3); CALC OSMOLALITY 288 mosm/kg (275-300); CALCIUM 7.5 mg/dL (8.5-10.1); CHLORIDE - SERUM 107 mmol/L (98-107); CREATININE - SERUM 0.9 mg/dL (0.6-1.3); GLUCOSE 82 mg/dL (74-106); POTASSIUM - SERUM 3.5 mmol/L (3.5-5.1); PROTEIN - SERUM 6.1 g/dL (6.4-8.2); SODIUM 144 mmol/L (136-145); UREA NITROGEN 21 mg/dL (7-18); eGFR NON AFRICAN AMERICAN 87 mL/min (90-120)
--- NOTE | 2017-09-23 11:56 | NUR ---
PATIENT IN BED WITH EYES CLOSED RESTING QUIETLY AT THIS TIME. NO COMPLAINTS OR SIGNS OF DISTRESS. CALL LIGHT WITHIN REACH.
[2017-09-23 12:45] VITALS: BP 131/54
--- NOTE | 2017-09-23 15:58 | NUR ---
REPORT RECIEVED AND CARE ASSUSMED OF PT REMIAN IN CONTACT ISOLATIONS FOR CELLULITIS TO LEFT ARM RESTING WELL IN BED WITH EYES CLOSED NO DISTRESS NOTED.
[2017-09-23 17:36] VITALS: BP 132/68
--- NOTE | 2017-09-23 19:00 | NUR ---
REPORT RECEIVED AND CARE OF PT ASSUMED. PT LYING IN LOW LOCO'S POSITION WITH EYES CLOSED. IV IN RIGHT FA PATENT WITH NS INFUSING AT KVO. WILL MONITOR CLOSLEY FOR NEEDS. BED ALARM AND KAE ALARM IN USE FOR SAFETY. SIDE RAILS UP X3 FOR SAFETY.
[2017-09-23 20:16] VITALS: BP 98/74
--- NOTE | 2017-09-23 20:47 | NUR ---
HS MEDICATIONS GIVEN TO INCLUDE PRN KLONOPIN SLEEP AIDE AND TO KEEP PT CALM. WILL MONITOR FOR NEEDS.
--- NOTE | 2017-09-23 22:00 | NUR ---
PT TURNED AND CHANGED BY PROSPECTING DRILLER HELPER'S...YELLING AND CURSING AT THEM AND COMBATIVE. ATTEMTPED TO RE-ORIENT PT WITH LITTLE SUCCESS. RESTING QUIETLY NOW AFTER LINEN CHANGE AND RE-POSITIONING.
[2017-09-23 23:39] VITALS: BP 167/73
[2017-09-24 05:42] VITALS: BP 158/72
--- NOTE | 2017-09-24 06:04 | NUR ---
CHANGED ALL IV TUBING PER CHANGE SCHEDULE.
--- NOTE | 2017-09-24 08:05 | NUR ---
PT CONFUSED. RESP EVEN AND NONLABORED IV TO RIGHT FOREARM PATENT AND INTACT AT THIS TIME SRX2 BED IN LOWEST SETTING CALL LIGHT WITHIN REACH WILL CONTINUE TO MONITOR
[2017-09-24 09:06] VITALS: BP 193/83
[2017-09-24 10:54] LABS: HEMATOCRIT 30.2 % (42.0-54.0); HEMOGLOBIN 9.8 g/dL (13.5-17.5); LYMPHOCYTES 26.6 % (15-50); MCH 29.4 pg (26.0-34.0); MCHC 32.5 g/dL (31.0-37.0); MEAN PLATELET VOLUME 8.9 fL (7.4-10.4); NEUTROPHILS 62.4 % (40-80); PLATELET COUNT 194 10x3/uL (130-400); RBC 3.33 10x6/uL (4.20-6.10); RDW 16.4 % (11.5-14.5)
[2017-09-24 10:55] LABS: MCV 90.7 fL (80.0-100.0)
[2017-09-24 12:30] VITALS: BP 137/79
[2017-09-24 16:45] VITALS: BP 178/81
--- NOTE | 2017-09-24 19:15 | NUR ---
REPORT RECEIVED AND CARE OF PT ASSUMED. PT LYING IN LOW LOCO'S POSITION WITH EYES CLOSED AND UNLABORED BREATHING. IV IN RIGHT FA PATENT WITH NS INFUSING AT KVO. WILL MONITOR FOR NEEDS. BED ALARM IN USE FOR SAFETY.
--- NOTE | 2017-09-24 21:36 | NUR ---
HS MEDICATIONS GIVEN. WILL CONTINUE TO MONITOR FOR NEEDS.
--- NOTE | 2017-09-25 00:57 | NUR ---
PT BEING CHANGED DUE TO INCONTINENCE...COMBATIVE AND YELLING. GAVE ATIVAN AND HALDOL IM PER PRN ORDER. WILL MONITOR FOR EFFECTIVENESS.
[2017-09-25 05:49] VITALS: BP 158/72
--- NOTE | 2017-09-25 09:15 | NUR ---
ASSESSMENT COMPLETE. IV TO R FA PATENT. NS INFUSING AT KVO VIA PUMP. INCONT OF BOWEL AND BLADDER. KAE MAT IN USE. CONTACT ISOLATION. COMBATIVE AT TIMES. REFUSING TO TAKE AM MEDS. REDNESS AND SWELLING NOTED TO L ARM.
[2017-09-25 09:39] VITALS: BP 132/83
--- NOTE | 2017-09-25 10:53 | NUR ---
INCONTINET OF URINE. SKIN CARE AND LINENS CHANGED PER STAFF. NO NEEDS NOTED.
[2017-09-25 13:00] VITALS: BP 136/80
--- NOTE | 2017-09-25 15:00 | NUR ---
NO CHANGES NOTED AT THIS TIME.
[2017-09-25 16:07] VITALS: BP 140/80
--- NOTE | 2017-09-25 18:00 | NUR ---
REFUSING TO EAT DINNER. NO CHANGES NOTED AT THIS TIME.
--- NOTE | 2017-09-25 19:45 | NUR ---
PATIENT RESTING IN BED AND DENIES NEEDS AT THIS TIME. BED IN LOWEST POSITION, CALL LIGHT WITHIN REACH, AND BED ALARM ON. ENCOURAGED THE PATIENT TO CALL IF HE HAS NEEDS.
[2017-09-25 20:00] VITALS: BP 181/97
--- NOTE | 2017-09-25 22:39 | NUR ---
PT YELLING AND ACTING AGGRESIVE WHEN CHANGING. GAVE ATIVAN 2 MG IM PER PRN ORDER. WILL MONITOR FOR EFFECTIVENESS.
--- NOTE | 2017-09-25 22:40 | NUR ---
CHANGED PT DUE TO INCONTINENT EPISODE. POSITIONED FOR COMFORT. SIDE RAILS UP X2 FOR SAFETY. BED ALARM IN USE.
[2017-09-26 04:00] VITALS: BP 140/51
[2017-09-26 08:30] VITALS: BP 162/57
--- NOTE | 2017-09-26 08:30 | NUR ---
ASSESSMENT COMPLETE. IV TO R FA PATENT. NS INFUSING AT KVO VIA PUMP. REDNESS AND SWELLING NOTED TO LEFT ARM. CONTACT ISOLATION. INCONT OF URINE AND STOOL. KAE MAT IN USE. SCD'S IN USE TO BILAT LEGS. REFUSING TO EAT BREAKFAST OR TAKE AM MEDICATIONS.
--- NOTE | 2017-09-26 12:00 | NUR ---
NO CHANGES NOTED.
[2017-09-26 12:31] VITALS: BP 135/84
--- NOTE | 2017-09-26 18:00 | NUR ---
INCONT OF URINE. PATIENT CLEANED AND LINENS CHANGED. BEGINS HITTING AT STAFF WHEN CARE BEING PROVIDED.
--- NOTE | 2017-09-26 19:30 | NUR ---
PATIENT RESTING WITH EYES CLOSED AND NO VISIBLE SIGNS OF DISTRESS. BED IN LOWEST POSITION, CALL LIGHT WITHIN REACH AND BED ALARM ON.
[2017-09-26 20:00] VITALS: BP 165/72
[2017-09-27] VITALS (8 sets, daily range): BP systolic 154–190; BP diastolic 73–92
[2017-09-27 04:41] LABS: BASOPHILS 0.3 % (0-2); EOSINOPHILS 7.2 % (0-7); HEMATOCRIT 24.8 % (42.0-54.0); HEMOGLOBIN 7.9 g/dL (13.5-17.5); IMMATURE GRANULOCYTES 0.6 % (0-5); LYMPHOCYTES 36.1 % (15-50); MCH 28.6 pg (26.0-34.0); MCHC 31.9 g/dL (31.0-37.0); MCV 89.9 fL (80.0-100.0); MEAN PLATELET VOLUME 9.4 fL (7.4-10.4); MONOCYTES 11.4 % (2-11); NEUTROPHILS 44.4 % (40-80); PLATELET COUNT 156 10x3/uL (130-400); RBC 2.76 10x6/uL (4.20-6.10); RDW 16.2 % (11.5-14.5); WBC 3.3 10x3/uL (4.8-10.8)
[2017-09-27 04:59] LABS: CALC OSMOLALITY 276 mosm/kg (275-300); CALCIUM 7.5 mg/dL (8.5-10.1); CARBON DIOXIDE 29.6 mmol/L (21.0-32.0); CHLORIDE - SERUM 104 mmol/L (98-107); CREATININE - SERUM 0.8 mg/dL (0.6-1.3); GLUCOSE 84 mg/dL (74-106); POTASSIUM - SERUM 3.1 mmol/L (3.5-5.1); SODIUM 139 mmol/L (136-145); UREA NITROGEN 12 mg/dL (7-18); eGFR NON AFRICAN AMERICAN > 90 mL/min (90-120)
--- NOTE | 2017-09-27 08:30 | NUR ---
PT CONFUSED AT THIS TIME PT DENIES NEEDS AT THIS TIME IV TO RIGHT FOREARM PATENT AND INTACT AT THIS TIME SRX2 BED AT LOWEST SETTING CALL LIGHT WITHIN REACH WILL CONTINUE TO MONITOR
--- NOTE | 2017-09-27 15:02 | NUR ---
NUTRITION F/U NURSING REPORTS PT CONTINUES TO HAVE POOR PO INTAKE. NOT DRINKING MUCH ENSURE. REMAINS IN ISOLATION. WILL CONTINUE TO PROVIDE DIET, ENSURE. MONITOR PT PROGRESS. RD FOLLOWING
--- NOTE | 2017-09-27 20:28 | NUR ---
RECIEVED REPORT ON PATIENT. HE IS RESTING QUIETLY AT THIS TIME WITH EYES CLOSED. HOB 45 DEGREES. HE IS RECIEVING PRBC VIA PERIPHERAL IV TO LEFT HAND AT 125ML/HR. NO SIGNS OF DISTRESS NOTED. BED IN LOWEST POSITION, CALL LIGHT IN REACH. BED RIALS UP X'S 2. SCDS TO BILATERAL LEGS.
--- NOTE | 2017-09-27 23:43 | NUR ---
2ND UNIT OF PRBC IS INFUSING.
[2017-09-28 04:00] VITALS: BP 197/83
[2017-09-28 05:35] LABS: BASOPHILS 0.3 % (0-2); EOSINOPHILS 5.3 % (0-7); HEMATOCRIT 29.7 % (42.0-54.0); IMMATURE GRANULOCYTES 0.3 % (0-5); LYMPHOCYTES 34.5 % (15-50); MCH 28.7 pg (26.0-34.0); MCHC 32.7 g/dL (31.0-37.0); MEAN PLATELET VOLUME 9.8 fL (7.4-10.4); MONOCYTES 12.2 % (2-11); NEUTROPHILS 47.4 % (40-80); PLATELET COUNT 174 10x3/uL (130-400); RDW 15.9 % (11.5-14.5); WBC 3.8 10x3/uL (4.8-10.8)
[2017-09-28 05:55] LABS: HEMOGLOBIN 9.7 g/dL (13.5-17.5); MCV 87.9 fL (80.0-100.0); RBC 3.38 10x6/uL (4.20-6.10)
[2017-09-28 06:02] LABS: CALC OSMOLALITY 279 mosm/kg (275-300); CALCIUM 7.2 mg/dL (8.5-10.1); CARBON DIOXIDE 31.9 mmol/L (21.0-32.0); CHLORIDE - SERUM 104 mmol/L (98-107); CREATININE - SERUM 0.9 mg/dL (0.6-1.3); GLUCOSE 94 mg/dL (74-106); POTASSIUM - SERUM 3.3 mmol/L (3.5-5.1); SODIUM 140 mmol/L (136-145); UREA NITROGEN 14 mg/dL (7-18); VALPROIC ACID (DEPAKOTE) 30.3 ug/mL (50.0-100.0); eGFR NON AFRICAN AMERICAN 87 mL/min (90-120)
--- NOTE | 2017-09-28 07:00 | NUR ---
REPORT RECIEVED ASSUMED CARE. PATIEN TIN BED WITH IV INTACT. NO COMPLAINTS OR SIGNS OF DISTRESS. RESTING WITH EYES CLOSED. BA ON. AP LIGHT WITHIN REACH.
[2017-09-28 08:47] VITALS: BP 172/77
--- NOTE | 2017-09-28 08:50 | NUR ---
PATIENT ASSESSMENT COMPLETE, VS STABLE. ONLY ABLE TO WAKE PATIENT TO TALK WITH STERNAL RUB. WONT OPEN EYES. REFUSES MEDS AND BREAKFAST. FAMILY AT BEDSIDE. CALL LIGHT WITHIN REACH.
--- NOTE | 2017-09-28 11:00 | NUR ---
PATIENT IN BED WITH EYES CLOSED. ASKED PATIENT IF HE WAS GOING TO WAKE UP AND EAT LUNCH. PATIENT STATED NO AT THIS TIME. EYES CLOSED, PATIENT BACK TO SLEEP.
[2017-09-28 12:48] VITALS: BP 170/74
[2017-09-28 16:46] VITALS: BP 177/71
--- NOTE | 2017-09-28 18:55 | NUR ---
PATIENT AWAKE AND YELLING MAMA OUT IN HE HALLWAY FROM HIS BED IN HIS ROOM. ASKED PATIENT IF HE NEEDED ANYTHING AT THIS TIME. STATED NO. IV INTACT. EYES OPE WITH NO COMPLAINTS. BA ON. CALL LIGHT WITHIN REACH.
[2017-09-28 20:00] VITALS: BP 162/78
[2017-09-29] VITALS: BP 168/89
--- NOTE | 2017-09-29 02:45 | NUR ---
BOTH IV CATHETERS LAYING IN THE BED.
--- NOTE | 2017-09-29 02:58 | NUR ---
GAVE PATIENT A BATH WITH GAS WELDER APPRENTICE. PATIENT YELLING, HITTING, NOT COOPERATING. ADMINISTERED ATIVAN IM. FINISHED BATH. TURNED PATIENT TO HIS LEFT SIDE.
--- NOTE | 2017-09-29 03:11 | NUR ---
22G IV STARTED TO RIGHT HAND, X'S 1 ATTEMPT FROM SHER [place]ES
[2017-09-29 04:00] VITALS: BP 151/66
[2017-09-29 06:49] LABS: CALC OSMOLALITY 279 mosm/kg (275-300); CALCIUM 7.3 mg/dL (8.5-10.1); CARBON DIOXIDE 29.9 mmol/L (21.0-32.0); CHLORIDE - SERUM 104 mmol/L (98-107); CREATININE - SERUM 0.8 mg/dL (0.6-1.3); GLUCOSE 85 mg/dL (74-106); POTASSIUM - SERUM 3.5 mmol/L (3.5-5.1); SODIUM 141 mmol/L (136-145); UREA NITROGEN 12 mg/dL (7-18); eGFR NON AFRICAN AMERICAN > 90 mL/min (90-120)
--- NOTE | 2017-09-29 07:00 | NUR ---
REPORT RECIEVED ASSUMED CARE. PATIENT IN BED WITH IV INTACT. CALL LIGHT WITHIN REACH.
[2017-09-29 07:16] LABS: BASOPHILS 0.6 % (0-2); EOSINOPHILS 6.4 % (0-7); HEMATOCRIT 28.8 % (42.0-54.0); HEMOGLOBIN 9.3 g/dL (13.5-17.5); IMMATURE GRANULOCYTES 0.3 % (0-5); LYMPHOCYTES 41.5 % (15-50); MCHC 32.3 g/dL (31.0-37.0); MCV 89.7 fL (80.0-100.0); MEAN PLATELET VOLUME 10.1 fL (7.4-10.4); MONOCYTES 11.2 % (2-11); RBC 3.21 10x6/uL (4.20-6.10); RDW 16.4 % (11.5-14.5); WBC 3.3 10x3/uL (4.8-10.8)
[2017-09-29] MEDS ORDERED: DEPAKOTE500 MG PO (07:20)
[2017-09-29 07:23] LABS: PLATELET COUNT 122 10x3/uL (130-400)
[2017-09-29] MEDS ORDERED: NORVASC10 MG PO (07:37)
[2017-09-29 08:05] VITALS: BP 131/70
--- NOTE | 2017-09-29 10:47 | NUR ---
CM REASSESSMENT NOTE: PATIENT IS DISCHARGING TODAY TO [facility] TO A GIVER BED.
[2017-09-29 12:04] VITALS: BP 150/73
--- NOTE | 2017-09-29 14:30 | NUR ---
REPORT CALLED TO [facility] AT THIS TIME. NO QUESTIONS AT THIS TIME. CALL LIGHT WITHIN REACH FOR PATIENT.
--- NOTE | 2017-09-29 14:46 | NUR ---
IV DCD WITH CATH TIP INTACT
== END 2017-09-29 17:48 | DRG 603 ==
LOC: D.ER 16:14 → D.MS 18:31
PROVIDERS: Emergency Medicine; ADMIT Family Medicine
DX: L03.114 Cellulitis of left upper limb (principal); N17.9 Acute kidney failure, unspecified; I74.2 Embolism and thrombosis of arteries of the upper extremities; F01.51 Vascular dementia, unspecified severity, with behavioral disturbance; I10 Essential (primary) hypertension; D63.8 Anemia in other chronic diseases classified elsewhere; I69.398 Other sequelae of cerebral infarction; K21.9 Gastro-esophageal reflux disease without esophagitis; F41.9 Anxiety disorder, unspecified; N40.0 Benign prostatic hyperplasia without lower urinary tract symptoms; E78.5 Hyperlipidemia, unspecified; I65.22 Occlusion and stenosis of left carotid artery; R53.81 Other malaise; Z91.19 Patient's noncompliance with other medical treatment and regimen; R32 Unspecified urinary incontinence; E87.6 Hypokalemia

== ENCOUNTER 2017-10-08 11:47 | Outpatient (CLI) | payer MEDICARE ==
[~2017-10-08 11:47] MED LIST changes: +DOXYCYCLINE HY100 M2 PO; +NORVASC10 MG PO; +NUEDEXTA 20-101 EACH PO
[2017-10-08 14:30] VITALS: BP 117/56; Ht 188 cm
--- NOTE | 2017-10-08 14:33 | NUR ---
1345-PT. RESTING QUIETLY IN BED. IV STARTED TIMES ONE ATTEMPT TO LEFT DORSAL HAND WITH 20G CATHETER, NORMAL SALINE INITIATED VIA PUMP AT KVO RATE. OFFERED BEVERAGE AND MEAL TO EAT IF DESIRED.
--- NOTE | 2017-10-08 15:05 | NUR ---
1450 NO S/S OF BLOOD REACTIONS NOTED.RESTING WITH EYES CLOSED. RESP NONLABORED. IV TO LT HAND NO REDNESS OR SWELLING.
--- NOTE | 2017-10-08 19:06 | NUR ---
1550 REPOSITIONED. DEPEND CHANGED.
--- NOTE | 2017-10-08 19:06 | NUR ---
1605 BLOOD 1ST UNIT COMPLETED. FLUSHED WITH SALINE. NO S/S OF BLOOD REACTIONS NOTED.
--- NOTE | 2017-10-08 19:09 | NUR ---
1610 2ND UNIT CHECKED 2 R.NS NEW BLOOD TUBING. BLOOD HUNG LEFT HAND NO REDNESS OR SWELLING. NO S/S OF BLOOD REACTIONS.
--- NOTE | 2017-10-08 19:11 | NUR ---
1810 V/S STABLW REPOSITIONED TO LEFT SIDE FIGHTING HITTING.
--- NOTE | 2017-10-08 19:11 | NUR ---
1710 ASSISTED WITH FEEDING SUPPER.
--- NOTE | 2017-10-08 19:12 | NUR ---
1909 BLOOD COMPLETED NO S/S OF BLOOD REACTIONS NOTED.FLUSHED WITH SALINE.
--- NOTE | 2017-10-08 19:53 | NUR ---
1900 CALLED [facility] TOLD TO BE HERE AT 1914.
--- NOTE | 2017-10-08 19:53 | NUR ---
1930 CALLED [facility] MULTIPLE TIMES AND BUSY TO CHECK ON RIDE. 1939 REPOSITIONED IN BED. DEPEND DRY.
--- NOTE | 2017-10-08 20:17 | NUR ---
1940 UP IN W/C. WAITING FOR RIDE FROM [facility]. REPORT CALLED TO MICAELA ESCALANTE.
--- NOTE | 2017-10-08 20:17 | NUR ---
2000 TO [facility] WITH SCREEN MACHINE OPERATOR.
== END 2017-10-08 20:00 | disposition home or self-care (01) ==
LOC: D.OPS 11:47
DX: D64.9 Anemia, unspecified (principal)

== ENCOUNTER 2017-11-03 07:28 | Outpatient (CLI) | payer MEDICARE ==
[2017-11-03 08:48] VITALS: BP 157/74; Ht 188 cm
== END 2017-11-03 18:30 | disposition home or self-care (01) ==
LOC: D.OPS 07:28
DX: D64.9 Anemia, unspecified (principal)

== ENCOUNTER 2017-11-26 11:10 | Outpatient (CLI) | payer MEDICARE ==
[2017-11-26 11:40] VITALS: BP 129/69; Ht 188 cm
== END 2017-11-26 18:52 ==
LOC: D.OPS 11:10
DX: D64.9 Anemia, unspecified (principal)

== ENCOUNTER 2017-12-09 10:39 | Outpatient (CLI) | payer MEDICARE | END 2017-12-09 18:50 | disposition home or self-care (01) | LOC: D.OPS 10:39 | DX: D64.9 Anemia, unspecified (principal) ==

== ENCOUNTER 2017-12-31 11:22 | Outpatient (CLI) | payer MEDICARE ==
[~2017-12-31] VITALS: Ht 188 cm; Wt 113.6 kg
[~2017-12-31 11:22] MED LIST changes: -CORDARONE200 MG; +CORDARONE200 MG PO
[2017-12-31 12:17] VITALS: BP 128/66; Ht 188 cm; Wt 113.6 kg
== END 2017-12-31 20:55 ==
LOC: D.OPS 11:22
DX: D64.9 Anemia, unspecified (principal)

== ENCOUNTER 2018-01-13 12:07 | Outpatient (CLI) | payer MEDICARE ==
[2017-12-31 12:17] VITALS: BMI 32.1
== END 2018-01-13 20:44 ==
LOC: D.OPS 12:07
DX: D64.9 Anemia, unspecified (principal)

== ENCOUNTER 2018-02-17 09:21 | Outpatient (CLI) | payer MEDICARE ==
[2018-02-17 11:30] VITALS: BP 146/76
== END 2018-02-17 18:55 ==
LOC: D.OPS 09:21
DX: D64.9 Anemia, unspecified (principal)

== ENCOUNTER 2018-02-27 17:44 | Outpatient (CLI) | payer MEDICARE ==
[2018-02-28] MEDS ORDERED: MYLANTA / MAALO30 ML PO (00:53)
[2018-02-28] MEDS ORDERED: NORVASC10 MG PO (09:55)
[2018-02-28] MEDS ORDERED: DEPAKENE250 MG PO (09:55)
[2018-02-28] MEDS ORDERED: K-TAB10 MEQ PO (09:56)
[2018-03-31 11:31] VITALS: BMI 27.4
== END 2018-02-27 20:26 | disposition other institution (70) ==
LOC: D.OPS 17:44
DX: E16.2 Hypoglycemia, unspecified (principal); G93.41 Metabolic encephalopathy; F01.51 Vascular dementia, unspecified severity, with behavioral disturbance; R53.83 Other fatigue; F02.80 Dementia in other diseases classified elsewhere, unspecified severity, without behavioral disturbance, psychotic disturbance, mood disturbance, and anxiety; E87.6 Hypokalemia; I10 Essential (primary) hypertension; D63.8 Anemia in other chronic diseases classified elsewhere; I69.319 Unspecified symptoms and signs involving cognitive functions following cerebral infarction

== ENCOUNTER 2018-02-27 17:44 | Inpatient (IN) | payer MEDICARE ==
[~2018-02-27] VITALS: Ht 172.7 cm; Wt 90.9 kg
[2018-02-27 18:18] LABS: BASOPHILS 0.3 % (0-2); EOSINOPHILS 0.7 % (0-7); HEMATOCRIT 30.7 % (42.0-54.0); HEMOGLOBIN 9.9 g/dL (13.5-17.5); IMMATURE GRANULOCYTES 0.2 % (0-5); LYMPHOCYTES 24.1 % (15-50); MCH 30.9 pg (26.0-34.0); MCHC 32.2 g/dL (31.0-37.0); MCV 95.9 fL (80.0-100.0); MEAN PLATELET VOLUME 9.7 fL (7.4-10.4); MONOCYTES 9.4 % (2-11); NEUTROPHILS 65.3 % (40-80); PLATELET COUNT 285 10x3/uL (130-400); WBC 5.8 10x3/uL (4.8-10.8)
[2018-02-27 18:23] LABS: APPEARANCE CLEAR (CLEAR); BILIRUBIN NEGATIVE (NEGATIVE); COLOR YELLOW (YELLOW); GLUCOSE NEGATIVE (NEGATIVE); KETONE NEGATIVE (NEGATIVE); NITRITE NEGATIVE (NEGATIVE); PROTEIN NEGATIVE (NEGATIVE); SPECIFIC GRAVITY 1.015 (1.005-1.020); UROBILINOGEN NORMAL (NORMAL)
[2018-02-27 18:33] LABS: ALBUMIN 3.3 g/dL (3.4-5.0); ALKALINE PHOSPHATASE 80 U/L (46-116); ALT (SGPT) 25 U/L (10-68); CALCIUM 8.7 mg/dL (8.5-10.1); CARBON DIOXIDE 29.2 mmol/L (21.0-32.0); CHLORIDE - SERUM 105 mmol/L (98-107); PROTEIN - SERUM 7.7 g/dL (6.4-8.2); SODIUM 144 mmol/L (136-145); UREA NITROGEN 25 mg/dL (7-18); eGFR NON AFRICAN AMERICAN 77 mL/min (90-120)
[2018-02-27 18:34] LABS: CALC OSMOLALITY 286 mosm/kg (275-300)
[2018-02-27 18:36] LABS: GLUCOSE 32 mg/dL (74-106); POTASSIUM - SERUM 2.9 mmol/L (3.5-5.1)
[2018-02-27 19:28] LABS: GLUCOSE 120 mg/dL (74-106)
[2018-02-27 19:29] LABS: VALPROIC ACID (DEPAKOTE) < 3.0 ug/mL (50.0-100.0)
[2018-02-28] MEDS ORDERED: MYLANTA / MAALO30 ML PO (00:53)
[2018-02-28 01:02] VITALS: BP 149/71; Ht 172.7 cm; Wt 90.9 kg
[2018-02-28 04:00] VITALS: BP 169/73
[2018-02-28 07:24] LABS: CALC OSMOLALITY 290 mosm/kg (275-300); CALCIUM 8.5 mg/dL (8.5-10.1); CARBON DIOXIDE 27.7 mmol/L (21.0-32.0); CHLORIDE - SERUM 106 mmol/L (98-107); GLUCOSE 106 mg/dL (74-106); SODIUM 144 mmol/L (136-145); UREA NITROGEN 25 mg/dL (7-18); eGFR NON AFRICAN AMERICAN 77 mL/min (90-120)
[2018-02-28 07:28] LABS: POTASSIUM - SERUM 3.8 mmol/L (3.5-5.1)
[2018-02-28 08:13] LABS: CHOL - HDL RATIO 2.5 ratio (2.3-4.9); LDL-HDL RATIO 1.3 ratio (1.5-3.5)
[2018-02-28 09:23] VITALS: BP 149/75
[2018-02-28] MEDS ORDERED: DEPAKENE250 MG PO (09:55)
[2018-02-28] MEDS ORDERED: NORVASC10 MG PO (09:55)
[2018-02-28] MEDS ORDERED: K-TAB10 MEQ PO (09:56)
== END 2018-02-28 11:09 | DRG 640 ==
LOC: D.ER 17:44 → D.EDHOLD 20:26 → D.MS 20:26
PROVIDERS: Family Medicine
DX: E16.2 Hypoglycemia, unspecified (principal); G93.41 Metabolic encephalopathy; F01.51 Vascular dementia, unspecified severity, with behavioral disturbance; R53.83 Other fatigue; G30.9 Alzheimer's disease, unspecified; F02.80 Dementia in other diseases classified elsewhere, unspecified severity, without behavioral disturbance, psychotic disturbance, mood disturbance, and anxiety; E87.6 Hypokalemia; I10 Essential (primary) hypertension; D63.8 Anemia in other chronic diseases classified elsewhere; I69.319 Unspecified symptoms and signs involving cognitive functions following cerebral infarction; K21.9 Gastro-esophageal reflux disease without esophagitis; F41.9 Anxiety disorder, unspecified; N40.0 Benign prostatic hyperplasia without lower urinary tract symptoms; E78.5 Hyperlipidemia, unspecified

== ENCOUNTER 2018-03-11 09:47 | Outpatient (CLI) | payer MEDICARE ==
[~2018-03-11] VITALS: Ht 172.7 cm; Wt 100.0 kg
[~2018-03-11 09:47] MED LIST changes: +DEPAKENE250 MG PO; +K-TAB10 MEQ PO; +MYLANTA / MAALO30 ML PO
[2018-03-11 13:21] VITALS: BP 132/71; Ht 172.7 cm; Wt 100.0 kg
== END 2018-03-11 17:45 ==
LOC: D.OPS 09:47
DX: D64.9 Anemia, unspecified (principal)

== ENCOUNTER 2018-03-31 09:10 | Outpatient (CLI) | payer MEDICARE ==
[~2018-03-31] VITALS: Ht 172.7 cm; Wt 81.8 kg
[2018-03-31 11:31] VITALS: BP 130/69; Ht 172.7 cm; Wt 81.8 kg
== END 2018-03-31 14:45 ==
LOC: D.OPS 09:10
DX: D64.9 Anemia, unspecified (principal)

== ENCOUNTER 2018-04-20 09:44 | Outpatient (CLI) | payer MEDICARE ==
[~2018-04-20] VITALS: Ht 172.7 cm; Wt 77.3 kg
[2018-04-20 10:47] VITALS: Ht 172.7 cm; Wt 77.3 kg
== END 2018-04-20 16:15 | disposition home or self-care (01) ==
LOC: D.OPS 09:44
DX: D64.9 Anemia, unspecified (principal); Z01.812 Encounter for preprocedural laboratory examination

== ENCOUNTER 2018-04-29 11:03 | Outpatient (CLI) | payer MEDICARE ==
[~2018-04-29] VITALS: Ht 172.7 cm; Wt 75.0 kg
[2018-04-29 11:44] VITALS: Ht 172.7 cm; Wt 75.0 kg
== END 2018-04-29 18:45 ==
LOC: D.OPS 11:03
DX: D64.9 Anemia, unspecified (principal); Z01.812 Encounter for preprocedural laboratory examination

== ENCOUNTER 2018-05-13 19:50 | Emergency (ER) | payer MEDICARE ==
[~2018-05-13] VITALS: Ht 172.7 cm; Wt 81.8 kg
[2018-05-13 19:52] VITALS: Ht 172.7 cm; Wt 81.8 kg
[2018-05-13] MEDS ORDERED: KLONOPIN0.5 MG PO ×2 (19:56→19:57)
[2018-05-13 22:21] VITALS: BP 124/73
== END 2018-05-13 22:21 ==
LOC: D.ER 19:50
DX: S09.90XA Unspecified injury of head, initial encounter (principal); W06.XXXA Fall from bed, initial encounter; Y93.89 Activity, other specified; Y92.122 Bedroom in nursing home as the place of occurrence of the external cause; I10 Essential (primary) hypertension; F03.90 Unspecified dementia, unspecified severity, without behavioral disturbance, psychotic disturbance, mood disturbance, and anxiety

== ENCOUNTER 2018-05-25 09:32 | Outpatient (CLI) | payer MEDICARE ==
[2018-05-13 19:52] VITALS: Ht 185.4 cm; Wt 90.0 kg
[~2018-05-25] VITALS: Ht 185.4 cm; Wt 90.0 kg
[2018-05-25 09:26] VITALS: BMI 26.1
== END 2018-05-25 14:20 ==
LOC: D.OPS 09:32
DX: D64.9 Anemia, unspecified (principal)

== ENCOUNTER → 2018-06-03 15:26 | Outpatient (CLI) | payer MEDICARE ==
[~2018-06-03] VITALS: Ht 185.4 cm; Wt 90.0 kg
[2018-06-03 16:25] VITALS: BP 137/76; BMI 26.1
[2018-06-03 16:44] VITALS: BP 137/76; Ht 185.4 cm; Wt 90.0 kg
== END | disposition home or self-care (01) ==
LOC: D.OPS 14:30
DX: D64.9 Anemia, unspecified (principal); Z01.812 Encounter for preprocedural laboratory examination